=== PATIENT | female | born 1955 | race Caucasian/White ===

== ENCOUNTER → 2019-01-04 10:29 | Outpatient (CLI) | payer BC, SELFPAY ==
[2019-01-04 11:51] LABS: Add Manual Diff / Slide Review NO; Basophils Absolute Auto 0 /uL (0-100); Basophils Percent Auto 0.5 % (0-2); Eosinophils Absolute Auto 0 /uL (0-450); Eosinophils Percent Auto 1.1 % (2-4); Hematocrit 41.4 % (36-46); Hemoglobin 14.2 g/dL (12.0-16.0); Lymphocytes Absolute Auto 1600 /uL (1100-4500); Lymphocytes Percent Auto 39.7 % (25-40); Mean Corpuscular HGB Conc 34.4 % (30-36); Mean Corpuscular Hemoglobin 31.9 PG (26-34); Mean Corpuscular Volume 92.7 fL (80-100); Monocytes Absolute Auto 200 /uL (0-900); Monocytes Percent Auto 5.7 % (3-14); Neutrophils Absolute Auto 2100 /uL (1500-7000); Platelet Count 222 X10^3/uL (150-400); Red Blood Cell Count 4.46 X10^6/uL (4.0-5.2); Red Cell Distribution Width 13.3 % (11.6-14.8)
[2019-01-04 12:21] LABS: Alanine Aminotransferase 12 IU/L (<35); Albumin 4.5 g/dL (3.5-5.0); Albumin Globulin Ratio 1.7 (1.0-2.8); Alkaline Phosphatase 63 U/L (38-126); Aspartate Aminotransferase 21 IU/L (14-36); BUN Creatinine Ratio 18.8 (6-22); Bilirubin Total 0.6 mg/dL (0.2-1.3); Bilirubin Unconjugated 0.5 mg/dL (0.0-1.1); Blood Urea Nitrogen 15 mg/dL (7-17); Calcium 9.5 mg/dL (8.4-10.2); Carbon Dioxide 30 mmol/L (22-32); Chloride 102 mmol/L (98-107); Estimated Glomerular Filt Rate > 60.0 mL/min (>60); Globulin 2.6 g/dL (1.7-4.1); Glucose 80 mg/dL (80-110); HEMOLYSIS < 15 (0-50); Potassium 4.8 mmol/L (3.4-5.1); Sodium 140 mmol/L (137-145); Total Protein 7.1 g/dL (6.3-8.2)
== END ==
PROVIDERS: Visit Provider Family Medicine
DX: Z86.69 Personal history of other diseases of the nervous system and sense organs (principal)
CPT/HCPCS: 36415; 80048; 80076; 85025

== ENCOUNTER → 2019-03-14 13:48 | Outpatient (CLI) | payer BC, SELFPAY ==
--- NOTE | 2019-03-14 13:52 | DI.MG.S_ITS ---
BILATERAL DIGITAL SCREENING MAMMOGRAM 3D/2D WITH CAD: 03/14/2019 CLINICAL: Routine screening. Comparison is made to exams dated: 02/26/2015 mammogram - [facility], 12/20/2010 mammogram, and 05/30/2009 mammogram - [facility]. The tissue of both breasts is extremely dense, which lowers the sensitivity of mammography. Current study was also evaluated with a Computer Aided Detection (CAD) system. No significant masses, calcifications, or other findings are seen in either breast. There has been no significant interval change. IMPRESSION: NEGATIVE There is no mammographic evidence of malignancy. A 1 year screening mammogram is recommended. This exam was interpreted at Station ID: [id number]. NOTE: For mammograms, a report in lay terms will be sent to the patient. Approximately 15% of breast malignancies will not be visualized mammographically. In the management of a palpable breast mass, a negative mammogram must not discourage biopsy of a clinically suspicious lesion. Electronically Signed By: Gary reza/art:03/15/2019 07:47:20 letter sent: Normal Exam ACR BI-RADS Category 1: Negative 3341F
[2019-03-14 14:38] LABS: Cholesterol 226 mg/dL (140-199); HDL Cholesterol 76 mg/dL (40-60); LDL Cholesterol Calculated 140 mg/dL (<100); Triglycerides 51 mg/dL (35-150)
[2019-03-14 15:38] LABS: Thyroid Stimulating Hormone 0.31 uIU/mL (0.47-4.68)
== END ==
PROVIDERS: PCP Family Medicine; Visit Provider Family Medicine
DX: Z12.31 Encounter for screening mammogram for malignant neoplasm of breast (principal); Z13.220 Encounter for screening for lipoid disorders; Z86.69 Personal history of other diseases of the nervous system and sense organs
CPT/HCPCS: 36415; 77063; 77067; 80061; 84443

== ENCOUNTER → 2019-03-22 12:50 | Outpatient (CLI) | payer BC, SELFPAY ==
[2019-03-22 14:31] LABS: Free T3, Triiodothyronine Free 3.22 pg/mL (2.77-5.27); Free T4, Direct Thyroxine 0.99 ng/dL (0.78-2.19)
[2019-03-22 14:44] LABS: Thyroid Stimulating Hormone 0.55 uIU/mL (0.47-4.68)
== END ==
PROVIDERS: PCP Nurse Practitioner; Visit Provider Nurse Practitioner
DX: E03.8 Other specified hypothyroidism (principal)
CPT/HCPCS: 36415; 84439; 84443; 84481

== ENCOUNTER → 2019-06-13 11:50 | Outpatient (CLI) | payer BC, SELFPAY ==
[2019-06-13 12:23] LABS: Add Manual Diff / Slide Review NO; Basophils Absolute Auto 0 /uL (0-100); Basophils Percent Auto 0.5 % (0-2); Eosinophils Absolute Auto 0 /uL (0-450); Eosinophils Percent Auto 0.6 % (2-4); Hematocrit 41.5 % (36-46); Hemoglobin 14.3 g/dL (12.0-16.0); Lymphocytes Absolute Auto 1600 /uL (1100-4500); Lymphocytes Percent Auto 35.2 % (25-40); Mean Corpuscular HGB Conc 34.5 % (30-36); Mean Corpuscular Hemoglobin 32.8 PG (26-34); Mean Corpuscular Volume 95.1 fL (80-100); Monocytes Absolute Auto 200 /uL (0-900); Monocytes Percent Auto 4.6 % (3-14); Neutrophils Absolute Auto 2700 /uL (1500-7000); Neutrophils Percent Auto 59.1 % (50-75); Platelet Count 220 X10^3/uL (150-400); Red Blood Cell Count 4.36 X10^6/uL (4.0-5.2); Red Cell Distribution Width 13.5 % (11.6-14.8); White Blood Cell Count 4.6 X10^3/uL (4.5-11.0)
== END ==
PROVIDERS: PCP Nurse Practitioner; Referring Provider Obstetrics & Gynecology; Visit Provider Obstetrics & Gynecology
DX: N95.2 Postmenopausal atrophic vaginitis (principal)
CPT/HCPCS: 36415; 85025

== ENCOUNTER → 2019-06-15 12:11 | Outpatient (CLI) | payer BC, SELFPAY ==
--- NOTE | 2019-06-15 12:13 | DI.US.S_ITS ---
PROCEDURE: US ABDOMEN LIMITED INDICATIONS: LEFT GROIN MASS TECHNIQUE: Real-time scanning was performed of the abdominal and retroperitoneal organs, with image documentation. COMPARISON: None. FINDINGS: Targeted sonographic evaluation of the left labial region and left pelvic floor at the palpable area of concern was performed. No suspicious mass, lymph node, skin abnormalities or sebaceous cyst identified. No abnormal fluid collections. IMPRESSION: No sonographic abnormalities identified over the palpable area of concern involving the pelvic floor and left labial region. Recommend continued clinical surveillance with followup imaging as needed. Dictated by: Gary Hernadez M.D. on 06/15/2019 at 13:08 Approved by: Gary Hernadez M.D. on 06/15/2019 at 13:11
== END ==
PROVIDERS: PCP Nurse Practitioner; Referring Provider Obstetrics & Gynecology; Visit Provider Obstetrics & Gynecology
DX: R19.09 Other intra-abdominal and pelvic swelling, mass and lump (principal)
CPT/HCPCS: 76705

== ENCOUNTER → 2019-11-23 09:36 | Outpatient (CLI) | payer BC, SELFPAY ==
[2019-11-23 11:00] LABS: Alanine Aminotransferase 12 IU/L (<35); Albumin 4.1 g/dL (3.5-5.0); Albumin Globulin Ratio 1.4 (1.0-2.8); Alkaline Phosphatase 55 U/L (38-126); Aspartate Aminotransferase 22 IU/L (14-36); Bilirubin Total 0.5 mg/dL (0.2-1.3); Blood Urea Nitrogen 16 mg/dL (7-17); Calcium 9.1 mg/dL (8.4-10.2); Carbon Dioxide 30 mmol/L (22-32); Chloride 105 mmol/L (98-107); Cholesterol 218 mg/dL (140-199); Estimated Glomerular Filt Rate > 60.0 mL/min (>60); Glucose 87 mg/dL (80-110); HDL Cholesterol 83 mg/dL (40-60); HEMOLYSIS < 15 (0-50); LDL Cholesterol Calculated 125 mg/dL (<100); Potassium 4.2 mmol/L (3.4-5.1); Sodium 140 mmol/L (137-145); Total Protein 7.1 g/dL (6.3-8.2); Triglycerides 51 mg/dL (35-150)
[2019-11-23 17:19] LABS: Free T3, Triiodothyronine Free 3.37 pg/mL (2.77-5.27); Free T4, Direct Thyroxine 1.18 ng/dL (0.78-2.19)
== END ==
PROVIDERS: PCP Nurse Practitioner; Referring Provider Nurse Practitioner; Visit Provider Nurse Practitioner
DX: Z01.812 Encounter for preprocedural laboratory examination (principal); E03.9 Hypothyroidism, unspecified; E78.5 Hyperlipidemia, unspecified; Z79.899 Other long term (current) drug therapy; R19.09 Other intra-abdominal and pelvic swelling, mass and lump; R79.89 Other specified abnormal findings of blood chemistry
CPT/HCPCS: 36415; 80053; 80061; 82565; 84439; 84443; 84481; 84520

== ENCOUNTER → 2020-10-18 09:19 | Outpatient (CLI) | payer BC, SELFPAY ==
[2020-10-18 09:45] LABS: Add Manual Diff / Slide Review NO; Basophils Absolute Auto 0 /uL (0-100); Basophils Percent Auto 0.8 % (0-2); Eosinophils Absolute Auto 0 /uL (0-450); Eosinophils Percent Auto 0.8 % (2-4); Hematocrit 40.8 % (36-46); Hemoglobin 13.5 g/dL (12.0-16.0); Lymphocytes Absolute Auto 1700 /uL (1100-4500); Lymphocytes Percent Auto 40.9 % (25-40); Mean Corpuscular HGB Conc 33.2 % (30-36); Mean Corpuscular Hemoglobin 31.5 PG (26-34); Monocytes Absolute Auto 200 /uL (0-900); Monocytes Percent Auto 5.7 % (3-14); Neutrophils Absolute Auto 2200 /uL (1500-7000); Neutrophils Percent Auto 51.8 % (50-75); Platelet Count 212 X10^3/uL (150-400); Red Cell Distribution Width 13.9 % (11.6-14.8); White Blood Cell Count 4.2 X10^3/uL (4.5-11.0)
[2020-10-18 10:01] LABS: Alanine Aminotransferase 15 IU/L (<35); Albumin Globulin Ratio 1.4 (1.0-2.8); Alkaline Phosphatase 51 U/L (38-126); Aspartate Aminotransferase 29 IU/L (14-36); BUN Creatinine Ratio 21.8 (6-22); Bilirubin Total 0.6 mg/dL (0.2-1.3); Blood Urea Nitrogen 17 mg/dL (7-17); Calcium 9.3 mg/dL (8.4-10.2); Carbon Dioxide 29 mmol/L (22-32); Chloride 106 mmol/L (98-107); Cholesterol 220 mg/dL (140-199); Estimated Glomerular Filt Rate > 60.0 mL/min (>60); Globulin 2.9 g/dL (1.7-4.1); Glucose 88 mg/dL (80-110); HDL Cholesterol 96 mg/dL (40-60); HEMOLYSIS < 15 (0-50); LDL Cholesterol Calculated 115 mg/dL (<100); Potassium 4.1 mmol/L (3.4-5.1); Sodium 138 mmol/L (137-145); Total Protein 6.9 g/dL (6.3-8.2); Triglycerides 46 mg/dL (35-150)
[2020-10-18 10:36] LABS: Free T3, Triiodothyronine Free 4.09 pg/mL (2.77-5.27); Free T4, Direct Thyroxine 1.12 ng/dL (0.78-2.19)
[2020-10-18 10:49] LABS: Thyroid Stimulating Hormone 0.373 uIU/mL (0.47-4.68)
== END ==
PROVIDERS: PCP Nurse Practitioner; Referring Provider Nurse Practitioner; Visit Provider Nurse Practitioner
DX: E78.5 Hyperlipidemia, unspecified (principal); R79.89 Other specified abnormal findings of blood chemistry; Z79.899 Other long term (current) drug therapy
CPT/HCPCS: 36415; 80053; 80061; 84439; 84443; 84481; 85025

== ENCOUNTER 2021-02-04 07:10 | Day surgery (SDC) | payer BC, SELFPAY ==
[2021-02-04] VITALS (8 sets, daily range): BP systolic 103–118; BP diastolic 63–75; PULSE 45–71; RESP 12–16; TEMP 36.5–36.8; O2SAT 97–98; BMI 18.8
[2021-02-04] MEDS: LACTATED RINGERS 1,000 ML 200 ML IV (07:49)
--- NOTE | 2021-02-04 08:19 | PM.HP.1 ---
History of Present Illness History of Present Illness Date Patient Seen: 02/04/21 Time Patient Seen: 08:19 Chief complaint: DEC Narrative: The patient presents for colorectal sreening. She had a previous colonoscopy 5 years ago. Family history of colon cancer. On further history denies any recent gastrointestinal symptoms. No nausea, vomiting, abdominal pain, loss of appetite, unexplained weight loss, change in bowel habits, diarrhea, constipation, melena, hematochezia, or bright red blood per rectum. Patient History Medical History Chicken pox Fibroids (~2004) Fractures Hearing loss Hx of migraine headaches (~1975) Left groin mass Measles Mumps Pain associated with vaginal penetration Vaginal atrophy Surgical History Anesthesia History of hysterectomy (~2004) History of mandibular surgery (~1986) Family & Social History Family History Father Stroke Grandfather No problems noted. Grandmother Stroke Social History: household members spouse Tobacco & Substance use: Smoking Status Never smoker alcohol intake never Substance Use Type does not use Meds Home Medications and Allergies Home Medications Medication Instructions Recorded Confirmed Type coenzyme Q10 [Ultra CoQ10] 1 tab PO DAILY 01/04/19 02/04/21 History clobetasol 0.05 % topical ointment 1 applictn TOP DAILY #30 gram 04/13/19 02/04/21 Rx zolmitriptan 5 mg tablet (Zomig) See Rx Instructions PO .COMPLEX 10/24/20 02/04/21 Rx #10 tab sodium,potassium,mag sulfates 17.5 See Rx Instructions PO .COMPLEX 11/08/20 02/04/21 Rx gram-3.13 gram-1.6 gram oral soln #354 ml (Suprep Bowel Prep Kit) Estriol 1mg Vaginal Danita See Rx Instructions .ROUTE 01/29/21 02/04/21 Rx .COMPLEX #30 each Aimovig Autoinjector 140 mg IM USEASDIRECTD 02/04/21 02/04/21 History Allergies Allergy/AdvReac Type Severity Reaction Status Date / Time hydromorphone [From Dilaudid] AdvReac rebound Verified 02/04/21 07:24 headache Exam Vital Signs (past 8 hours): - 02/04/21 07:31 Temperature 98.3 F Pulse Rate 54 L Respiratory Rate 16 Blood Pressure 117/72 Pulse Oximetry 98 Oxygen Delivery Method Room Air Narrative Exam Narrative: Constitutional-She is oriented to person, place and time. No apparent distress Cardiovascular- regular rate, no peripheral edema Pulmonary-unlabored respiratory effort, no audible wheezing Abdominal-soft, non-tender, non-distended Musculoskeletal-no cyanosis or clubbing Neurological-nonfocal, normal strength throughout, normal gait. Skin-warm and dry Assessment & Plan Assessment & Plan narrative: The patient requires colorectal screening and colonoscopy is recommended. Technical details were discussed. Risks, benefits, alternatives explained. Risks including but not limited to myocardial infarction, aspiration, bleeding, pain, missed lesion, incomplete examination, need for further radiographic studies, colonic perforation, and need for major abdominal surgery were discussed. All questions were answered to their satisfaction, and they are in agreement with this plan. Time Spent With Patient Critical Care time: I spent a total of [] minutes of critical care time on this patient's care today; this time is exclusive of procedural time.
[2021-02-04] MEDS: fentaNYL 250 MCG/5 ML INJ IV (08:42)
[2021-02-04] MEDS: MIDAZOLAM 5 MG/5 ML VIAL IV (08:42)
--- NOTE | 2021-02-04 08:52 | PM.OP.COLON ---
Operative Date/Time/Diagnoses Date of procedure: 02/04/21 Time of procedure: 08:52 Pre-op diagnosis: Family history of colon cancer Post-op diagnosis: same Procedure & Clinicians Study performed: Colonoscopy Same procedure as scheduled: Yes Indications: Family history colon cancer Surgeon: Mario London Procedure Notes Procedure in detail: Medications: Conscious sedation using 4mg IV midazolam and 150mcg IV of fentanyl The history and physical was performed/updated and the patient is ASA class is 2. The procedure was discussed in detail with the patient. Potential risks complications including infection, bleeding, missed diagnosis, perforation, need for surgery, and were explained. Their questions were answered and informed consent was obtained. Patient was brought to the procedure room and placed standard monitoring equipment. The patient's vital signs were monitored continuously throughout the entire procedure. Prior to starting time-out was performed. The patient was placed in the left lateral recumbent position. Procedural sedation was administered. Examination began with a thorough inspection of the perianal area there was no evidence of fissures, fistulae, external hemorrhoids or cutaneous malignancy. The colonoscopy scope was then placed into the anal canal and was advanced to the cecum, which was identified by the ileocecal valve, the appendiceal orifice and the confluence of the taenia. The scope was then slowly withdrawn examining colon thoroughly in all directions, irrigating it of any residual stool. FINDINGS 1. No masses polyps or inflammation 2. Grade 2 internal The patient tolerated the procedure well. They will be discharged once criteria are met. The prep was of good/excellent quality. The withdrawl time was 6minutes. The sedation time was 25 minutes. Specimen(s): none sent Complications: none Impression: Normal colonoscopy Post-procedure Recommendations: Colonoscopy in 5 years Disposition: same day surgery
--- NOTE | 2021-02-04 09:06 | SUR.PHASEI ---
0854 hrs: Pt arrives PACU breathing unassisted, Report form ELMER Rose, all questions answered.
--- NOTE | 2021-02-04 09:30 | SUR.PHASEI ---
0910 hrs: Pt transported to bay 3. Report to ELMER Tolbert, all questions answered.
--- NOTE | 2021-02-04 10:08 | SUR.PHASEII ---
Late entry: Stable Phase 2, pt dressed, left when ready and left in stable condition.
--- NOTE | 2021-02-04 10:18 | SUR.PHASEII ---
Pt ready to go, ride called, went to voicemail , mail box full. Will try again. Pt w/o complaints.
== END 2021-02-04 09:50 | disposition home or self-care (01) ==
PROVIDERS: PCP Nurse Practitioner; Referring Provider Surgery; Visit Provider Surgery
PROC: 0DJD8ZZ Inspection of Lower Intestinal Tract, Via Natural or Artificial Opening Endoscopic (ICD-10-PCS; CPT 45378; principal; 2021-02-04 08:30)
DX: Z12.11 Encounter for screening for malignant neoplasm of colon (principal); Z80.0 Family history of malignant neoplasm of digestive organs; K64.1 Second degree hemorrhoids
CPT/HCPCS: 45378; 99152; J2250; J3010

== ENCOUNTER → 2021-02-12 09:58 | Outpatient (CLI) | payer BC, SELFPAY ==
--- NOTE | 2021-02-12 10:00 | DI.MG.S_ITS ---
BILATERAL DIGITAL SCREENING MAMMOGRAM 3D/2D WITH CAD: 02/12/2021 CLINICAL: Routine screening. Comparison is made to exams dated: 03/14/2019 mammogram - [facility], 02/26/2015 mammogram - [facility], and 12/20/2010 mammogram - [facility]. The tissue of both breasts is extremely dense, which lowers the sensitivity of mammography. Current study was also evaluated with a Computer Aided Detection (CAD) system. There are benign calcifications in the right breast. No significant masses, calcifications, or other findings are seen in either breast. There has been no significant interval change. IMPRESSION: BENIGN There is no mammographic evidence of malignancy. A 1 year screening mammogram is recommended. This exam was interpreted at Station ID: [id number]. NOTE: For mammograms, a report in lay terms will be sent to the patient. Approximately 15% of breast malignancies will not be visualized mammographically. In the management of a palpable breast mass, a negative mammogram must not discourage biopsy of a clinically suspicious lesion. Electronically Signed By: Lexa purdy/art:02/12/2021 10:34:16 letter sent: Normal Exam ACR BI-RADS Category 2: Benign Finding(s) 3342F
== END ==
PROVIDERS: PCP Nurse Practitioner; Referring Provider Nurse Practitioner; Visit Provider Nurse Practitioner
DX: Z12.31 Encounter for screening mammogram for malignant neoplasm of breast (principal)
CPT/HCPCS: 77063; 77067

== ENCOUNTER → 2021-12-17 08:20 | Outpatient (CLI) | payer BC, SELFPAY ==
[2021-12-17 09:38] LABS: Alanine Aminotransferase 17 IU/L (<35); Albumin 4.4 g/dL (3.5-5.0); Albumin Globulin Ratio 1.3 (1.0-2.8); Alkaline Phosphatase 57 U/L (38-126); Aspartate Aminotransferase 38 IU/L (14-36); BUN Creatinine Ratio 21.7 (6-22); Bilirubin Total 0.6 mg/dL (0.2-1.3); Blood Urea Nitrogen 18 mg/dL (7-17); Calcium 9.1 mg/dL (8.4-10.2); Carbon Dioxide 25 mmol/L (22-32); Chloride 104 mmol/L (98-107); Cholesterol 237 mg/dL (140-199); Estimated Glomerular Filt Rate > 60 mL/min (>60); Globulin 3.3 g/dL (1.7-4.1); Glucose 84 mg/dL (80-110); HDL Cholesterol 83 mg/dL (40-60); HEMOLYSIS 24 (0-50); LDL Cholesterol Calculated 145 mg/dL (<100); Potassium 3.9 mmol/L (3.4-5.1); Sodium 139 mmol/L (137-145); Total Protein 7.7 g/dL (6.3-8.2); Triglycerides 45 mg/dL (35-150)
[2021-12-17 09:58] LABS: Free T3, Triiodothyronine Free 3.41 pg/mL (2.77-5.27); Free T4, Direct Thyroxine 1.15 ng/dL (0.78-2.19)
[2021-12-17 10:11] LABS: Thyroid Stimulating Hormone 0.711 uIU/mL (0.47-4.68)
[2021-12-17 10:44] LABS: Hep C Virus Ab w/Reflex Quant NEGATIVE s/c (NEGATIVE)
== END ==
PROVIDERS: PCP Nurse Practitioner; Referring Provider Nurse Practitioner; Visit Provider Nurse Practitioner
DX: E78.5 Hyperlipidemia, unspecified (principal); R79.89 Other specified abnormal findings of blood chemistry; Z79.899 Other long term (current) drug therapy; Z86.69 Personal history of other diseases of the nervous system and sense organs; Z11.59 Encounter for screening for other viral diseases
CPT/HCPCS: 36415; 80053; 80061; 84439; 84443; 84481; 86803

== ENCOUNTER → 2022-02-13 09:49 | Outpatient (CLI) | payer BC, SELFPAY ==
--- NOTE | 2022-02-13 09:50 | DI.MG.S_ITS ---
BILATERAL DIGITAL SCREENING MAMMOGRAM 3D/2D WITH CAD: 02/13/2022 CLINICAL: Routine screening. Comparison is made to exams dated: 02/12/2021 mammogram, 03/14/2019 mammogram - [facility], and 02/26/2015 mammogram - [facility]. Both breasts are extremely dense, which lowers the sensitivity of mammography (category d />75% glandular tissue). Current study was also evaluated with a Computer Aided Detection (CAD) system. There are grouped linear fine calcifications in the right breast at 1 o'clock anterior depth. No other significant masses, calcifications, or other findings are seen in either breast. IMPRESSION: INCOMPLETE: NEEDS ADDITIONAL IMAGING EVALUATION The grouped linear fine calcifications in the right breast are indeterminate. Magnification and lateromedial views are recommended. This exam was interpreted at Station ID: [id number]. NOTE: For mammograms, a report in lay terms will be sent to the patient. Approximately 15% of breast malignancies will not be visualized mammographically. In the management of a palpable breast mass, a negative mammogram must not discourage biopsy of a clinically suspicious lesion. Electronically Signed By: Stoney Garsia M.D., jr/art:02/13/2022 11:04:55 letter sent: Additional Imaging Needed ACR BI-RADS Category 0: Incomplete 3340F
[2022-02-17 15:57] LABS: Fecal Immunochemical Test Negative (Negative)
== END ==
PROVIDERS: PCP Nurse Practitioner; Referring Provider Nurse Practitioner; Visit Provider Nurse Practitioner
DX: Z12.31 Encounter for screening mammogram for malignant neoplasm of breast (principal); Z13.820 Encounter for screening for osteoporosis; Z12.11 Encounter for screening for malignant neoplasm of colon; Z78.0 Asymptomatic menopausal state; M85.852 Other specified disorders of bone density and structure, left thigh; Z90.710 Acquired absence of both cervix and uterus; Z92.23 Personal history of estrogen therapy
CPT/HCPCS: 77063; 77067; 77080; 82274

== ENCOUNTER → 2022-03-05 10:18 | Outpatient (CLI) | payer BC, SELFPAY ==
--- NOTE | 2022-03-05 | DI.MG.S_ITS ---
UNILATERAL RIGHT DIGITAL DIAGNOSTIC MAMMOGRAM 3D/2D WITH ADDITIONAL VIEWS: 03/05/2022 CLINICAL: Additional evaluation requested from prior study. Comparison is made to exams dated: 02/13/2022 mammogram, 02/12/2021 mammogram, and 03/14/2019 mammogram - [facility]. The right breast is extremely dense, which lowers the sensitivity of mammography (category d />75% glandular tissue). There are grouped oval and round calcifications in the right breast at 12 o'clock anterior depth. These have increased in number since 2020. No other significant masses or calcifications are seen in the breast. IMPRESSION: PROBABLY BENIGN The calcifications in the right breast are probably benign. A follow-up right mammogram in 6 months is recommended to demonstrate stability. Findings and recommendations were conveyed to the patient at time of exam. This exam was interpreted at Station ID: [id number]. NOTE: For mammograms, a report in lay terms will be sent to the patient. Approximately 15% of breast malignancies will not be visualized mammographically. In the management of a palpable breast mass, a negative mammogram must not discourage biopsy of a clinically suspicious lesion. Electronically Signed By: Lynette whitley/:03/05/2022 10:56:56 letter sent: Followup Recommended ACR BI-RADS Category 3: Probably benign 3343F
== END ==
PROVIDERS: PCP Nurse Practitioner; Referring Provider Nurse Practitioner; Visit Provider Nurse Practitioner
DX: R92.8 Other abnormal and inconclusive findings on diagnostic imaging of breast (principal); R92.1 Mammographic calcification found on diagnostic imaging of breast
CPT/HCPCS: 77065; G0279

== ENCOUNTER → 2022-08-06 10:02 | Outpatient (CLI) | payer BC, SELFPAY ==
--- NOTE | 2022-08-06 10:03 | DI.MG.S_ITS ---
UNILATERAL RIGHT DIGITAL DIAGNOSTIC MAMMOGRAM 3D/2D: 08/06/2022 CLINICAL: Short term follow up of the right breast. Comparison is made to exams dated: 03/05/2022 mammogram, 02/13/2022 mammogram, and 02/12/2021 mammogram - [facility]. The right breast is extremely dense, which lowers the sensitivity of mammography (category d />75% glandular tissue). There are grouped round calcifications in the right breast at 12 o'clock anterior depth. These are not significantly changed. No other significant masses or calcifications are seen in the breast. IMPRESSION: PROBABLY BENIGN The grouped round calcifications in the right breast are probably benign. A follow-up mammogram in 6 months is recommended to demonstrate stability. Based on the Tyrer Cuzick model (a risk assessment model) the patient's lifetime risk is 17.0% and her 10 year risk is 8.7%. According to the ACR, ACS, and NCCN guidelines, an annual breast MRI exam along with mammogram is recommended if the patient's lifetime risk is 20% or greater. This exam was interpreted at Station ID: [id number]. NOTE: For mammograms, a report in lay terms will be sent to the patient. Approximately 15% of breast malignancies will not be visualized mammographically. In the management of a palpable breast mass, a negative mammogram must not discourage biopsy of a clinically suspicious lesion. Electronically Signed By: Dinesh shafer/art:08/06/2022 13:01:09 letter sent: Followup Recommended ACR BI-RADS Category 3: Probably benign 3343F
== END ==
PROVIDERS: PCP Nurse Practitioner; Referring Provider Nurse Practitioner; Visit Provider Nurse Practitioner
DX: R92.1 Mammographic calcification found on diagnostic imaging of breast (principal)
CPT/HCPCS: 77065; G0279

== ENCOUNTER → 2022-12-30 11:35 | Outpatient (CLI) | payer BC, SELFPAY ==
[2022-12-30 12:45] LABS: Add Manual Diff / Slide Review NO; Basophils Absolute Auto 0 /uL (0-100); Basophils Percent Auto 0.4 % (0-2); Eosinophils Absolute Auto 0 /uL (0-450); Eosinophils Percent Auto 0.5 % (2-4); Hematocrit 39.9 % (36-46); Hemoglobin 13.8 g/dL (12.0-16.0); Lymphocytes Absolute Auto 1600 /uL (1100-4500); Lymphocytes Percent Auto 33.3 % (25-40); Mean Corpuscular HGB Conc 34.5 % (30-36); Mean Corpuscular Hemoglobin 32.5 PG (26-34); Mean Corpuscular Volume 94.1 fL (80-100); Monocytes Absolute Auto 200 /uL (0-900); Monocytes Percent Auto 5.1 % (3-14); Neutrophils Absolute Auto 2900 /uL (1500-7000); Neutrophils Percent Auto 60.7 % (50-75); Platelet Count 203 X10^3/uL (150-400); Red Blood Cell Count 4.24 X10^6/uL (4.0-5.2); Red Cell Distribution Width 13.1 % (11.6-14.8); White Blood Cell Count 4.7 X10^3/uL (4.5-11.0)
[2022-12-30 13:37] LABS: Alanine Aminotransferase 14 IU/L (<35); Albumin 4.1 g/dL (3.5-5.0); Albumin Globulin Ratio 1.5 (1.0-2.8); Alkaline Phosphatase 45 U/L (38-126); Aspartate Aminotransferase 22 IU/L (14-36); BUN Creatinine Ratio 22.2 (6-22); Bilirubin Total 0.8 mg/dL (0.2-1.3); Blood Urea Nitrogen 16 mg/dL (7-17); Calcium 9.5 mg/dL (8.4-10.2); Carbon Dioxide 27 mmol/L (22-32); Chloride 104 mmol/L (98-107); Cholesterol 236 mg/dL (140-199); Estimated Glomerular Filt Rate > 60 mL/min (>60); Globulin 2.8 g/dL (1.7-4.1); Glucose 89 mg/dL (80-110); HDL Cholesterol 93 mg/dL (40-60); HEMOLYSIS < 15 (0-50); Potassium 4.1 mmol/L (3.4-5.1); Sodium 138 mmol/L (137-145); Total Protein 6.9 g/dL (6.3-8.2)
[2022-12-30 13:54] LABS: TSH w/ Reflex to FT4 0.31 uIU/mL (0.47-4.68)
[2022-12-30 19:07] LABS: LDL Cholesterol Calculated 132 mg/dL (<100); Triglycerides 54 mg/dL (35-150)
[2022-12-30 19:09] LABS: Free T4, Direct Thyroxine 1.27 ng/dL (0.78-2.19)
== END ==
PROVIDERS: PCP Nurse Practitioner; Referring Provider Family Medicine; Visit Provider Family Medicine
DX: M85.80 Other specified disorders of bone density and structure, unspecified site (principal); R79.89 Other specified abnormal findings of blood chemistry; E78.5 Hyperlipidemia, unspecified; Z86.69 Personal history of other diseases of the nervous system and sense organs; H91.90 Unspecified hearing loss, unspecified ear; G43.909 Migraine, unspecified, not intractable, without status migrainosus
CPT/HCPCS: 36415; 80053; 80061; 84439; 84443; 85025

== ENCOUNTER → 2023-02-10 12:04 | Outpatient (CLI) | payer BC, SELFPAY ==
--- NOTE | 2023-02-10 12:05 | DI.MG.S_ITS ---
BILATERAL DIGITAL DIAGNOSTIC MAMMOGRAM 3D/2D: 02/10/2023 CLINICAL: Short term follow up, due bilateral. Comparison is made to exams dated: 08/06/2022 mammogram, 03/05/2022 mammogram, 02/13/2022 mammogram, 02/12/2021 mammogram, and 03/14/2019 mammogram - [facility]. Both breasts are extremely dense, which lowers the sensitivity of mammography (category d />75% glandular tissue). There are grouped rim round calcifications in the right breast at 12 o'clock anterior depth. These are more well defined and denser compared to prior. No other significant masses, calcifications, or other findings are seen in either breast. Mammograms are otherwise stable. IMPRESSION: PROBABLY BENIGN The grouped calcifications in the right breast are stable, resemble fibrocystic change or milk of calcium and are probably benign. A follow-up right mammogram in 6 months is recommended to demonstrate stability. Bilateral mammograms are otherwise stable. Findings and recommendations were conveyed to the patient at time of exam. Based on the Tyrer Cuzick model (a risk assessment model) the patient's lifetime risk is 17.0% and her 10 year risk is 8.7%. According to the ACR, ACS, and NCCN guidelines, an annual breast MRI exam along with mammogram is recommended if the patient's lifetime risk is 20% or greater. This exam was interpreted at Station ID: [id number]. NOTE: For mammograms, a report in lay terms will be sent to the patient. Approximately 15% of breast malignancies will not be visualized mammographically. In the management of a palpable breast mass, a negative mammogram must not discourage biopsy of a clinically suspicious lesion. Electronically Signed By: Lynette whitley/:02/10/2023 12:40:06 letter sent: Followup Recommended ACR BI-RADS Category 3: Probably benign 3343F
== END ==
PROVIDERS: PCP Nurse Practitioner; Referring Provider Nurse Practitioner; Visit Provider Nurse Practitioner
DX: R92.8 Other abnormal and inconclusive findings on diagnostic imaging of breast (principal); R92.1 Mammographic calcification found on diagnostic imaging of breast
CPT/HCPCS: 77066; G0279

== ENCOUNTER → 2023-12-03 10:07 | Outpatient (CLI) | payer BC, SELFPAY ==
--- NOTE | 2023-12-03 | DI.MG.S_ITS ---
BILATERAL DIGITAL DIAGNOSTIC MAMMOGRAM 3D/2D SHORT-TERM FOLLOW-UP: 12/03/2023 CLINICAL: Short term follow up of the right breast, due for bilateral imaging. Comparison is made to exams dated: 02/10/2023 mammogram, 08/06/2022 mammogram, 03/05/2022 mammogram, and 02/13/2022 mammogram - [facility]. The breasts are extremely dense, which lowers the sensitivity of mammography (category d />75% glandular tissue). There are grouped rim round calcifications in the right breast at 12 o'clock anterior depth. These are increased in number. No other significant masses, calcifications, or other findings are seen in either breast. IMPRESSION: INCOMPLETE: NEED ADDITIONAL IMAGING EVALUATION The grouped rim round calcifications in the right breast are mildly increased and size compared to January 2022. No mass seen at the palpable abnormalities. A targeted ultrasound is recommended and will immediately follow. Based on the Tyrer Cuzick model (a risk assessment model) the patient's lifetime risk is 16.2% and her 10 year risk is 8.7%. According to the ACR, ACS, and NCCN guidelines, an annual breast MRI exam along with mammogram is recommended if the patient's lifetime risk is 20% or greater. This exam was interpreted at Station ID: [id number]. NOTE: For mammograms, a report in lay terms will be sent to the patient. Approximately 15% of breast malignancies will not be visualized mammographically. In the management of a palpable breast mass, a negative mammogram must not discourage biopsy of a clinically suspicious lesion. Electronically Signed By: Donta Triana M.D. [facility]/:12/03/2023 11:11:25 Entry: - 12/03/2023 15:22:52 letter sent: Need Ultrasound ACR BI-RADS Category 0: Incomplete: Need Additional Imaging Evaluation
--- NOTE | 2023-12-03 10:08 | DI.US.S_ITS ---
LIMITED ULTRASOUND OF RIGHT BREAST AND AXILLA: 12/03/2023 CLINICAL: Palpable right breast lumps x 2. Comparison is made to exams dated: 12/03/2023 mammogram, 02/10/2023 mammogram, 08/06/2022 mammogram, 03/05/2022 mammogram, 02/13/2022 mammogram, and 02/12/2021 mammogram - [facility]. Report from CT chest 11/20/2023. Color flow and real-time ultrasound of the right breast 1-2 o'clock, 10 o'clock, and axilla regions were performed. Stanford scale images of the real-time examination were reviewed. There is a 3.9 cm x 3.6 cm x 1.6 cm mass with a microlobulated margin in the right breast at 1 o'clock anterior depth 2 cm from the nipple. This mass is hypoechoic. This correlates as palpated. Color flow imaging demonstrates that there is vascularity present. This mass appear to extend inferior laterally to the 3:00 position. There also is a benign 0.6 cm x 0.6 cm x 0.3 cm oval simple cyst in the right breast at 10 o'clock posterior depth 5 cm from the nipple. This oval simple cyst is anechoic. Color flow imaging demonstrates that there is no vascularity present. Additionally, there is a benign 0.8 cm x 0.7 cm x 0.3 cm normal lymph node in the right breast at 10 o'clock posterior depth 8 cm from the nipple. This normal lymph node is hypoechoic with fatty hilum. Color flow imaging demonstrates that there is no vascularity present. No significant abnormalities were seen sonographically in the right axilla. IMPRESSION: HIGHLY SUGGESTIVE OF MALIGNANCY The 3.9 cm x 3.6 cm x 1.6 cm mass in the right breast at 1 o'clock anterior depth is highly suggestive of malignancy. This mass appear to extend inferior laterally to the 3:00 position. -An ultrasound guided biopsy is recommended. The 0.6 cm simple cyst in the right breast at 10 o'clock posterior depth is benign. The 0.8 cm normal lymph node in the right breast at 10 o'clock posterior depth is benign. No enlarged right axillary lymph nodes. Exam findings were discussed with the patient. This exam was interpreted at Station ID: [id number]. Electronically Signed By: Donta Triana M.D. slc/:12/03/2023 12:20:33 letter sent: Biopsy Required ACR BI-RADS Category 5: Highly Suggestive of Malignancy
== END ==
PROVIDERS: PCP Family Medicine; Referring Provider Family Medicine; Visit Provider Family Medicine
DX: R92.8 Other abnormal and inconclusive findings on diagnostic imaging of breast (principal); R92.1 Mammographic calcification found on diagnostic imaging of breast; N63.12 Unspecified lump in the right breast, upper inner quadrant; N60.01 Solitary cyst of right breast; R92.343 Mammographic extreme density, bilateral breasts
CPT/HCPCS: 76642; 77066; G0279

== ENCOUNTER → 2023-12-11 09:39 | Outpatient (CLI) | payer BC, SELFPAY ==
--- NOTE | 2023-12-11 09:41 | DI.US.S_ITS ---
ULTRASOUND GUIDED BIOPSY RIGHT BREAST WITH MARKING DEVICE INSERTED AND POST DIGITAL MAMMOGRAPHIC IMAGIN12/11/2023 CLINICAL: Right breast mass. PATIENT CONSENT: Risks (minor bleeding, infection, vasovagal reaction and repeat procedure), benefits and alternatives were explained to the patient and written informed consent was obtained. Correlation is made to exams dated: 12/11/2023 mammogram, 12/03/2023 ultrasound, 12/03/2023 mammogram, 02/10/2023 mammogram, 08/06/2022 mammogram, and 03/05/2022 mammogram - [facility]. An ultrasound guided biopsy using real-time ultrasound was performed for the 2.9 cm x 2.5 cm x 1.5 cm lobulated mass located in the right breast at 1 o'clock anterior depth 2 cm from the nipple. This was described on the previous ultrasound report. The skin was prepped in the usual manner. Local anesthetic was administered to the access site. A skin kelvin was made in the breast. The abnormality was approached from the lateral aspect. A 14 gauge biopsy needle was placed adjacent to the abnormality under ultrasound guidance. Once the needle was documented to be in the correct location, three cores were obtained using [employer] Elevation. The patient received additional local anesthetic during the procedure. A vision clip was inserted into the biopsy cavity. A skin adhesive and a sterile dressing were applied to the access site. Post procedure digital mammographic imaging demonstrates the location device at the targeted area. The specimens were sent to the laboratory for pathological analysis. IMPRESSION: ULTRASOUND GUIDED BIOPSY MALIGNANT Ultrasound guided biopsy of the 2.9 cm x 2.5 cm x 1.5 cm mass in the right breast at 1 o'clock anterior depth 2 cm from the nipple was successful with no apparent post procedure complications. Pathology indicates malignant ductal carcinoma in situ (DCIS). Pathology results are concordant with imaging findings. A surgical/oncologic consultation is recommended. This exam was interpreted at Station ID: [id number]. Gt murillo,aty/:12/16/2023 10:05:33
--- NOTE | 2023-12-11 09:41 | DI.MG.S_ITS ---
UNILATERAL RIGHT DIGITAL DIAGNOSTIC MAMMOGRAM 3D/2D - RIGHT BREAST POST-PROCEDURE IMAGING FOR MARKER PLACEMENT: 12/11/2023 CLINICAL: Post right breast ultrasound biopsy, clip placement imaging. Comparison is made to exams dated: 12/03/2023 mammogram, 02/10/2023 mammogram, 08/06/2022 mammogram, 03/05/2022 mammogram, and 02/13/2022 mammogram - [facility]. The breasts are extremely dense, which lowers the sensitivity of mammography (category d />75% glandular tissue). There is a vision marker clip in the appropriate position in the right breast at 1 o'clock anterior depth at the biopsy site. IMPRESSION: POST PROCEDURE MAMMOGRAM FOR MARKER PLACEMENT There was a successful vision marker clip placement in the right breast anterior depth. Procedure preformed by Dr. Odonnell. This exam was interpreted at Station ID: [id number]. Electronically Signed By: Donta Triana M.D. slc/:12/12/2023 09:40:56 ACR BI-RADS Category Post-Procedure Mammogram for Marker Placement
--- NOTE | 2023-12-11 11:09 | PATH_ITS ---
[facility] Accession Number: [id number] No. of containers..01 Tissue . 01 Material submitted: . breast - RIGHT BREAST 1:00 2CMFN . 01 Clinical history: . RIGHT BREAST 1:00 2CMFN . 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 Negative for invasive carcinoma. Few microcalcifications are present, associated with ductal carcinoma in situ. Predictive and prognostic markers ER and [place]: Positive. Please see microscopic description. MRV 12/15/2023 1705 Local . 01 Comment: As part of ongoing senior supplier quality engineer, this case is also reviewed by Dr. Ban Ruiz, who agrees with the interpretation. . 01 Electronically signed: . Cristy Rojo MD, Pathologist NPI- [id number] . 01 Gross description: . Received in formalin, labeled with two patient identifiers and designated right 1 o'clock 2 cm FN, and consists of three fibrofatty soft tissue cores admixed with clotted blood aggregating to 1.1 x 1.0 x 0.2 cm. The specimens are entirely submitted in cassette A1. . The specimen was removed on 12/12/2023 at 11:09 a.m. Formalin fixation time is not given. Cold ischemic time cannot be calculated. ([id number]) /FRR 12/12/2023 1243 Local . 01 Microscopic: . Microscopic examination reveals ductal carcinoma in situ, cribriform and solid architectural pattern, with intermediate to high nuclear grade. There is a focus of small ducts involved by carcinoma in situ. To better evaluate this focus and rule out the possibility of microinvasive carcinoma, multiple deeper levels and immunostains are performed with the following results: . DIONE immunostain (panepithelial marker) argues against infiltrating carcinoma, and p63 and myosin immunostains confirm the presence of myoepithelial/basal cell layer on the area of interest supporting ductal carcinoma in situ involving a small focus of adenosis. . Estrogen Receptor (ER) is positive, with strong intensity, more than 91% of ductal carcinoma in situ cells. . Progesterone Receptor (NY) is positive, with intermediate intensity, 51-60% of ductal carcinoma in situ cells. . The scoring criteria for breast biomarkers by immunohistochemistry is based on the ASCO/CAP guidelines (Tena AC et al, J Clin Oncol: 2018 Sep 01;36(20):4334-8886 and Alyse ME et al, Arch Pathol Lab Med: 2009;134(6):907-22). Deparaffinized sections of formalin fixed tissue (along with appropriate positive controls) are incubated with the above antibody(s). Using the automated [place] stainer, tissue is incubated with the designated antibody which is then localized by a non-biotin, dual polymer detection system. The external controls are reviewed for appropriate reactivity and found to be adequate. Results on the target cell population are indicated above. These tests have not been validated on decalcified or alcohol-based fixed tissue. . * This test was developed and the performance characteristics were validated by [facility]. It has not been cleared or approved by the U.S. Food and Drug Administration. . . 01 Pathologist provided ICD-10: D05.91 . 01 CPT . 905258, K01223, X16592, 740648, 707064 Performed at: [address] [address], [place], [place] [id number] MD Lexa Xiao MD Phone: [phone]
== END ==
PROVIDERS: PCP Family Medicine; Referring Provider Family Medicine; Visit Provider Family Medicine
DX: D05.11 Intraductal carcinoma in situ of right breast
CPT/HCPCS: 19083; 77065

== ENCOUNTER → 2023-12-23 08:35 | Outpatient (CLI) | payer BC, SELFPAY ==
[2023-12-23 09:10] LABS: Add Manual Diff / Slide Review NO; Basophils Absolute Auto 0 /uL (0-100); Basophils Percent Auto 0.7 % (0-2); Eosinophils Absolute Auto 0 /uL (0-450); Hematocrit 41.8 % (36-46); Hemoglobin 14.2 g/dL (12.0-16.0); Lymphocytes Absolute Auto 1600 /uL (1100-4500); Lymphocytes Percent Auto 38.2 % (25-40); Mean Corpuscular HGB Conc 33.9 % (30-36); Mean Corpuscular Hemoglobin 32.3 PG (26-34); Mean Corpuscular Volume 95.4 fL (80-100); Monocytes Absolute Auto 200 /uL (0-900); Monocytes Percent Auto 5.7 % (3-14); Neutrophils Absolute Auto 2300 /uL (1500-7000); Neutrophils Percent Auto 54.4 % (50-75); Platelet Count 216 X10^3/uL (150-400); Red Blood Cell Count 4.39 X10^6/uL (4.0-5.2); Red Cell Distribution Width 13.3 % (11.6-14.8); White Blood Cell Count 4.3 X10^3/uL (4.5-11.0)
[2023-12-23 09:28] LABS: Alanine Aminotransferase 14 IU/L (<35); Albumin 4.1 g/dL (3.5-5.0); Albumin Globulin Ratio 1.6 (1.0-2.8); Alkaline Phosphatase 49 U/L (38-126); Aspartate Aminotransferase 21 IU/L (14-36); BUN Creatinine Ratio 20.7 (6-22); Bilirubin Total 0.7 mg/dL (0.2-1.3); Blood Urea Nitrogen 17 mg/dL (7-17); Calcium 9.6 mg/dL (8.4-10.2); Carbon Dioxide 29 mmol/L (22-32); Chloride 106 mmol/L (98-107); Cholesterol 200 mg/dL (140-199); Estimated Glomerular Filt Rate > 60 mL/min (>60); Globulin 2.6 g/dL (1.7-4.1); Glucose 90 mg/dL (80-110); HDL Cholesterol 79 mg/dL (40-60); HEMOLYSIS < 15 (0-50); LDL Cholesterol Calculated 106 mg/dL (<100); Potassium 4.5 mmol/L (3.4-5.1); Sodium 139 mmol/L (137-145); Total Protein 6.7 g/dL (6.3-8.2); Triglycerides 76 mg/dL (35-150)
[2023-12-23 09:58] LABS: TSH w/ Reflex to FT4 0.43 uIU/mL (0.47-4.68)
[2023-12-23 10:22] LABS: Free T4, Direct Thyroxine 1.12 ng/dL (0.78-2.19)
== END ==
PROVIDERS: PCP Family Medicine; Referring Provider Family Medicine; Visit Provider Family Medicine
DX: R79.89 Other specified abnormal findings of blood chemistry (principal); E78.5 Hyperlipidemia, unspecified; G43.909 Migraine, unspecified, not intractable, without status migrainosus; N63.10 Unspecified lump in the right breast, unspecified quadrant
CPT/HCPCS: 36415; 80053; 80061; 84439; 84443; 85025

== ENCOUNTER → 2024-07-13 13:55 | Outpatient (CLI) | payer BC, SELFPAY ==
--- NOTE | 2024-07-13 13:58 | DI.RAD.S_ITS ---
PROCEDURE: XR HIP RT 2V INDICATIONS: Right Hip Pain TECHNIQUE: AP view of the pelvis, lateral view of the right hip COMPARISON: None. FINDINGS: Diffuse osseous demineralization. No acute fracture or dislocation. 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 on the right and 131? on the left (125-135? is normal). Mild bilateral hip osteoarthritis. Mild bilateral sacroiliac joint osteoarthritis. Mild pubic symphysis osteoarthritis. Enthesopathic remodeling at the ischial tuberosities. IMPRESSION: Mild right hip osteoarthritis. Dictated by: Russel Gar M.D. on 07/13/2024 at 15:34 Approved by: Russel Gar M.D. on 07/13/2024 at 15:37
== END ==
PROVIDERS: Family Provider Family Medicine; PCP Family Medicine; Referring Provider Family Medicine; Visit Provider Family Medicine
DX: M16.11 Unilateral primary osteoarthritis, right hip (principal); M25.551 Pain in right hip; M70.71 Other bursitis of hip, right hip; Z68.21 Body mass index [BMI] 21.0-21.9, adult
CPT/HCPCS: 73502; 99213

== ENCOUNTER 2024-08-08 06:03 | Day surgery (SDC) | payer BC, SELFPAY ==
[2024-08-04 08:58] VITALS: BMI 20.3
[2024-08-08 06:43] VITALS: BP 131/75; PULSE 55; RESP 15; TEMP 36.9; O2SAT 100; BMI 20.3
[2024-08-08] MEDS: LACTATED RINGERS 1,000 ML 42 ML IV (06:53)
--- NOTE | 2024-08-08 07:27 | PM.PREOP ---
Pre-operative Note Interval Note History & Physical reviewed/Exam performed by Physician: Yes Changes to H&P: No
[2024-08-08] MEDS: CEFAZOLIN 2 GM/100 ML PREMIX 100 ML IV (07:45)
--- NOTE | 2024-08-08 08:04 | SUR.OPER ---
Supine on padded OR bed, head on pillow, right arm secured on padded arm boards at <90 degrees abduction,left arm draped free on black hand table legs uncrossed, safety belt at thigh, tape over blanket over lower legs.
[2024-08-08] MEDS: BUPIVACAINE 0.25% (PF) VIAL 30 ML INJ (08:18)
[2024-08-08 08:30] VITALS: BP 124/78; PULSE 60; RESP 16; TEMP 36.2; O2SAT 99
[2024-08-08 08:35] VITALS: BP 124/75; PULSE 57; RESP 16; O2SAT 98
--- NOTE | 2024-08-08 08:35 | PM.OP.1 ---
Operative Date/Time/Diagnoses Date of procedure: 08/08/24 Time of procedure: 08:36 Pre-op diagnosis: Left Index Finger Mass Post-op diagnosis: same Procedure & Clinicians Procedure: Left Index Finger Mass Excision Same procedure as scheduled: Yes Surgeon: Morgan Bravo Click Yes if Unassisted: Yes Anesthesia Type: General Operative Notes Findings: Laterality: LEFT Preoperative diagnosis: Index Finger Mass Procedure performed: Index Finger Mass Excision Postoperative diagnosis: Same Primary Surgeon: Morgan Bravo MD Secondary Surgeon: None Anesthesia: General EBL: 3 ml Tourniquet: 22 minutes @ 250 mmHg Implants: None Indication For Surgery: Symptomatic mass despite non-operative treatments. The risks, benefits, and alternatives were discussed. Risks include pain, bleeding, infection, damage to nearby structures and cartilage, lack of symptom relief, need for further surgery, DVT, PE, stroke, and . Written consent was obtained. 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 Consent was verified and operative extremity was signed. The patient then met with anesthesia and was brought back to the operating room. The patient was placed supine on the operating table. Anesthetic was administered. The extremity was then prepped and draped in the usual sterile fashion. A timeout was performed per protocol. All were in agreement and we proceeded. A 3cm sandoval incision was utilized centered over the mass. Scissor dissection was brought down through the subcutaneous tissues until the mass was identified. THe mass had a brownish yellow appearance and was associated with the extensor tendon. THe mass was easily shelled out and was removed. THe wound was inspected for other masses however there was no other evidence of additional masses. THe wound was irrigated with sterile fluid. The skin was closed with 4-0 interupted nylonl. A sterile dressing and splint was applied. Postoperative Plan: Same day surgery discharge Splint on until follow up 2 week follow up for splint & suture removal. Home ROM. No manual labor 6 week follow up with planned release to full activity Morgan Bravo MD Applied: cast(s) Estimated Blood Loss (mL): 3 Complications: none
[2024-08-08 08:40] VITALS: BP 114/75; PULSE 77; RESP 18; O2SAT 98
[2024-08-08 08:45] VITALS: BP 114/75; PULSE 67; RESP 16; TEMP 36.2; O2SAT 98
[2024-08-08 08:54] VITALS: BP 120/70; PULSE 56; RESP 16; TEMP 36.2; O2SAT 98
== END 2024-08-08 09:29 | disposition home or self-care (01) ==
PROVIDERS: Family Provider Family Medicine; PCP Family Medicine; Referring Provider Orthopaedic Surgery; Visit Provider Orthopaedic Surgery
PROC: (CPT 26111; principal; 2024-08-08 07:45)
DX: R22.32 Localized swelling, mass and lump, left upper limb (principal)
CPT/HCPCS: 26111; J0690; J1100; J2704; J3010

== ENCOUNTER 2024-09-27 11:30 | Outpatient (RCR) | payer BC, SELFPAY ==
--- NOTE | 2024-08-01 16:02 | PT.OTN ---
Current Diagnoses Pain in right hip (08/01/24) Physical Therapy Treatment Note PT-OP-A Visit Information Start: 08/01/24 08:59 Freq: Status: Active Protocol: Document 08/01/24 09:03 GG (Rec: 08/01/24 09:53 GG [id number]) Out-Patient Physical Therapy Visit Information Visit Information Visit Type Initial Evaluation Visit Start Time 09:03 Visit Stop Time 09:45 Visit Number 1 Number of POST TENSIONING IRONWORKER Visits 0 PT-OP-B Current Condition Start: 08/01/24 08:59 Freq: Status: Active Protocol: Document 08/01/24 09:03 GG (Rec: 08/01/24 09:53 GG [id number]) Current Condition History of Current Condition Onset Date May 2024 Current Complaints R hip pain History of Current Pt notes that she had UE radiation done from Mar-May Condition and hx of mastectomy Dec 2024. Notes that hip pain started a week following finishing radiation, but unsure if that is contributing. She was going to lift her leg into car and couldn't, w/ pain. Pt shows that pain is primarily anterior, but comes laterally around the hip. Went to [facility] and they said her R hip was just tight, got prescribed meloxicam and is using ice. Still has difficulty getting into and out of the car. Notes hip pain has improved since May. Has tried a standing quad stretch, but she doesn't feel like it stretches the right spot. Bikes a lot and notes that it feels unstable, weak, and painful when bringing leg up while pedaling and pushing up a hill. Notes hip pain is worst w/ uphill cycling. Typically bikes 20 miles but can't do her normal route d/t there being a large hill. Can still bike 18 miles, but she feels her hip the whole time while biking. Treatment Goals Patient/Caregiver bike without pain, get stronger Goals PT-OP-C Subjective Start: 08/01/24 08:59 Freq: Status: Active Protocol: Document 08/01/24 09:03 GG (Rec: 08/01/24 09:53 GG [id number]) Patient Questionnaires Lower Extremity Functional Scale LEFS Score 58/80 PT-OP-J Posture/Palpation/Skin Start: 08/01/24 08:59 Freq: Status: Active Protocol: Document 08/01/24 09:03 GG (Rec: 08/02/24 15:15 GG [id number]) Posture Evaluation Comments Posture Comments R iliac crest higher than L, equal greater trochanters PT-OP-L Special Tests Start: 08/01/24 08:59 Freq: Status: Active Protocol: Document 08/01/24 09:03 GG (Rec: 08/01/24 09:53 GG [id number]) Special Tests Hip Special Tests DIOR Test Results pos on R Fidel Test Results pos on R Comments notes pain on L side w/ hip flexion PT-OP-M Strength Start: 08/01/24 08:59 Freq: Status: Active Protocol: Document 08/01/24 09:03 GG (Rec: 08/01/24 09:53 GG [id number]) Hip Strength Hip Manual Muscle Testing Right Flexion (L2) 4 Good Extension (S1) 3+ Fair+ Abduction 4 Good Adduction 4+ Good+ External Rotation 5 Normal Internal Rotation 5 Normal Left Flexion (L2) 4+ Good+ Extension (S1) 4+ Good+ Abduction 4+ Good+ Adduction 5 Normal External Rotation 5 Normal Internal Rotation 5 Normal Comments pain in R hip w/ L adduction; better w/ change in R leg positioning Knee Strength Knee Manual Muscle Testing Right Flexion (S2) 5 Normal Extension (L3) 4+ Good+ Left Flexion (S2) 5 Normal Extension (L3) 4+ Good+ Ankle/Foot Strength Ankle and Foot Manual Muscle Testing Right Dorsiflexion (L4) 5 Normal Plantarflexion (S1) 5 Normal Left Dorsiflexion (L4) 5 Normal Plantarflexion (S1) 5 Normal PT-OP-Q Treatments Start: 08/01/24 08:59 Freq: Status: Active Protocol: Document 08/01/24 09:03 GG (Rec: 08/02/24 15:33 GG [id number]) Therapeutic Exercises Standing Exercises hip extension Side bilateral Reps/Minutes 10x Comments cue for upright trunk and leaning forward hip ABD Side bilateral Reps/Minutes 10x Comments cue for bend in standing knee, smaller ROM Other Exercises stretches Other Exercise Name kneeling hip flexor Side bilateral Reps/Minutes 45 sec Comments cue for upright trunk and leaning forward PT-OP-T Assessment and Plan Start: 08/01/24 08:59 Freq: Status: Active Protocol: Document 08/01/24 09:03 GG (Rec: 08/01/24 09:53 [id number]) Physical Therapy Assessment Rehab Potential Rehabilitation Good Potential Evaluation Complexity Number of Personal 3 or More Factors/ Comorbidities Number of Body 3 Systems Impaired Clinical Evolving Presentation at Evaluation Impairments Impairments Activity Tolerance,Coordination,Functional Activities, Functional Mobility,Gait,Pain,Strength Goals activity Short Term Goal (STG Pt will be able to get into/out of the car w/out pain. ) STG Duration 08/26/24 Jail Goal (LTG) Pt will be able to bike her normal route, including the uphill w/out pain. LTG Duration 09/27/24 LEFS Impairment 58/80 Short Term Goal (STG Pt will score at least a 62/80 to show improved ) function and ability to perform activities. STG Duration 08/26/24 Artists' Booking Representative Goal (LTG) Pt will score at least a 65/80 to show improved function and ability to perform activities. LTG Duration 09/27/24 strength Short Term Goal (STG Pt will be independent in HEP. ) STG Duration 08/26/24 Jail Goal (LTG) Pt will score at least a 4+/5 on BLE MMTs to improved strength and better ability to perform functional goals . LTG Duration 09/27/24 Assessment Summary Assessment Nidia is a 69 y/o presenting to PT w/ R hip pain and shows some signs of hip impingement based on testing. The hip pain as well as strength deficits lead to limitations in performance of biking and getting into and out of her car. She will benefit from skilled PT to improve strength and reduce hip pain so she can better perform her activities. Physical Therapy Plan Frequency and Duration Frequency of 2x/Week Treatment Duration of 8 treatment (weeks) Plan of Care Start 08/01/24 Date Plan of Care End 09/27/24 Date Therapeutic Interventions Therapeutic Coordination Training,Gait Training,Home Exercise Interventions Program,Manual Therapy,Neuromuscular Re-education, Patient/Caregiver Education,Self-Care/Home Management, Soft Tissue Mobilization,Therapeutic Activities, Therapeutic Exercises Modalities Cold Pack/Ice Massage,Electric Stimulation,Hot Packs, Infrared Therapy,Traction- Mechanical,Ultrasound Next Visit Focus/Plan Next Note Type Treatment Note Next Visit Plan LE strengthening: quad, glutes, adductors; manual tx: hip mobilizations, assess pelvis/innominates, potentially soft tissue/stretches
--- NOTE | 2024-08-01 16:08 | PT.OIE ---
Addendum entered and electronically signed by Maria M Gracia, PT 08/02/24 17:56: PT direct supervision and direction to student PT Xochilt Jacobsen throughout session Original Note: Current Diagnoses Pain in right hip (08/01/24) Past Medical History (Last Updated 06/28/24 @ 11:04 by Denice Dyer DO) Breast mass, right Chicken pox Ductal carcinoma in situ (DCIS) of breast Encounter for subsequent annual wellness visit (AWV) in Medicare patient Fibroids (~2004) Fractures Hearing loss Hx of migraine headaches (~1975) Left groin mass Measles Mumps Osteopenia determined by x-ray Pain associated with vaginal penetration Vaginal atrophy Past Surgical History (Last Reviewed 01/05/23 @ 14:17 by ELLA Tam) Anesthesia History of hysterectomy (~2004) History of mandibular surgery (~1986) Visit Care Team Role Provider Type Denice Dyer DO Attending Provider Physician Family Provider Primary Care Provider Referring Provider Specialty: [facility] Practice Address: [address] [place] [address], [address], [facility] Email: [email or web address] Physical Therapy Initial Evaluation PT-OP-A Visit Information Start: 08/01/24 08:59 Freq: Status: Active Protocol: Document 08/01/24 09:03 GG (Rec: 08/01/24 09:53 GG [id number]) Out-Patient Physical Therapy Visit Information Visit Information Visit Type Initial Evaluation Visit Start Time 09:03 Visit Stop Time 09:45 Visit Number 1 Number of PRINT PRODUCTION MANAGER Visits 0 PT-OP-B Current Condition Start: 08/01/24 08:59 Freq: Status: Active Protocol: Document 08/01/24 09:03 GG (Rec: 08/01/24 09:53 GG [id number]) Current Condition History of Current Condition Onset Date May 2024 Current Complaints R hip pain History of Current Pt notes that she had UE radiation done from Mar-May Condition and hx of mastectomy Dec 2024. Notes that hip pain started a week following finishing radiation, but unsure if that is contributing. She was going to lift her leg into car and couldn't, w/ pain. Pt shows that pain is primarily anterior, but comes laterally around the hip. Went to [facility] and they said her R hip was just tight, got prescribed meloxicam and is using ice. Still has difficulty getting into and out of the car. Notes hip pain has improved since May. Has tried a standing quad stretch, but she doesn't feel like it stretches the right spot. Bikes a lot and notes that it feels unstable, weak, and painful when bringing leg up while pedaling and pushing up a hill. Notes hip pain is worst w/ uphill cycling. Typically bikes 20 miles but can't do her normal route d/t there being a large hill. Can still bike 18 miles, but she feels her hip the whole time while biking. Treatment Goals Patient/Caregiver bike without pain, get stronger Goals PT-OP-C Subjective Start: 08/01/24 08:59 Freq: Status: Active Protocol: Document 08/01/24 09:03 GG (Rec: 08/01/24 09:53 GG [id number]) Patient Questionnaires Lower Extremity Functional Scale LEFS Score 58/80 PT-OP-J Posture/Palpation/Skin Start: 08/01/24 08:59 Freq: Status: Active Protocol: Document 08/01/24 09:03 GG (Rec: 08/02/24 15:15 GG [id number]) Posture Evaluation Comments Posture Comments R iliac crest higher than L, equal greater trochanters PT-OP-L Special Tests Start: 08/01/24 08:59 Freq: Status: Active Protocol: Document 08/01/24 09:03 GG (Rec: 08/01/24 09:53 GG [id number]) Special Tests Hip Special Tests DIOR Test Results pos on R Fidel Test Results pos on R Comments notes pain on L side w/ hip flexion PT-OP-M Strength Start: 08/01/24 08:59 Freq: Status: Active Protocol: Document 08/01/24 09:03 GG (Rec: 08/01/24 09:53 GG [id number]) Hip Strength Hip Manual Muscle Testing Right Flexion (L2) 4 Good Extension (S1) 3+ Fair+ Abduction 4 Good Adduction 4+ Good+ External Rotation 5 Normal Internal Rotation 5 Normal Left Flexion (L2) 4+ Good+ Extension (S1) 4+ Good+ Abduction 4+ Good+ Adduction 5 Normal External Rotation 5 Normal Internal Rotation 5 Normal Comments pain in R hip w/ L adduction; better w/ change in R leg positioning Knee Strength Knee Manual Muscle Testing Right Flexion (S2) 5 Normal Extension (L3) 4+ Good+ Left Flexion (S2) 5 Normal Extension (L3) 4+ Good+ Ankle/Foot Strength Ankle and Foot Manual Muscle Testing Right Dorsiflexion (L4) 5 Normal Plantarflexion (S1) 5 Normal Left Dorsiflexion (L4) 5 Normal Plantarflexion (S1) 5 Normal PT-OP-Q Treatments Start: 08/01/24 08:59 Freq: Status: Active Protocol: Document 08/01/24 09:03 GG (Rec: 08/02/24 15:33 GG [id number]) Therapeutic Exercises Standing Exercises hip extension Side bilateral Reps/Minutes 10x Comments cue for upright trunk and leaning forward hip ABD Side bilateral Reps/Minutes 10x Comments cue for bend in standing knee, smaller ROM Other Exercises stretches Other Exercise Name kneeling hip flexor Side bilateral Reps/Minutes 45 sec Comments cue for upright trunk and leaning forward PT-OP-T Assessment and Plan Start: 08/01/24 08:59 Freq: Status: Active Protocol: Document 08/01/24 09:03 GG (Rec: 08/01/24 09:53 GG [id number]) Physical Therapy Assessment Rehab Potential Rehabilitation Good Potential Evaluation Complexity Number of Personal 3 or More Factors/ Comorbidities Number of Body 3 Systems Impaired Clinical Evolving Presentation at Evaluation Impairments Impairments Activity Tolerance,Coordination,Functional Activities, Functional Mobility,Gait,Pain,Strength Goals activity Short Term Goal (STG Pt will be able to get into/out of the car w/out pain. ) STG Duration 08/26/24 Whipped Topping Finisher Goal (LTG) Pt will be able to bike her normal route, including the uphill w/out pain. LTG Duration 09/27/24 LEFS Impairment 58/80 Short Term Goal (STG Pt will score at least a 62/80 to show improved ) function and ability to perform activities. STG Duration 08/26/24 Custodial Goal (LTG) Pt will score at least a 65/80 to show improved function and ability to perform activities. LTG Duration 09/27/24 strength Short Term Goal (STG Pt will be independent in HEP. ) STG Duration 08/26/24 Whipped Topping Finisher Goal (LTG) Pt will score at least a 4+/5 on BLE MMTs to improved strength and better ability to perform functional goals . LTG Duration 09/27/24 Assessment Summary Assessment Nidia is a 69 y/o presenting to PT w/ R hip pain and shows some signs of hip impingement based on testing. The hip pain as well as strength deficits lead to limitations in performance of biking and getting into and out of her car. She will benefit from skilled PT to improve strength and reduce hip pain so she can better perform her activities. Physical Therapy Plan Frequency and Duration Frequency of 2x/Week Treatment Duration of 8 treatment (weeks) Plan of Care Start 08/01/24 Date Plan of Care End 09/27/24 Date Therapeutic Interventions Therapeutic Coordination Training,Gait Training,Home Exercise Interventions Program,Manual Therapy,Neuromuscular Re-education, Patient/Caregiver Education,Self-Care/Home Management, Soft Tissue Mobilization,Therapeutic Activities, Therapeutic Exercises Modalities Cold Pack/Ice Massage,Electric Stimulation,Hot Packs, Infrared Therapy,Traction- Mechanical,Ultrasound Next Visit Focus/Plan Next Note Type Treatment Note Next Visit Plan LE strengthening: quad, glutes, adductors; manual tx: hip mobilizations, assess pelvis/innominates, potentially soft tissue/stretches
--- NOTE | 2024-08-03 17:49 | PT.OTN ---
Addendum entered and electronically signed by Maria M rGacia, PT 08/03/24 18:14: PT direct supervision and direction to student PT Xochilt Jacobsen throughout session Original Note: Current Diagnoses Pain in right hip (08/03/24) Physical Therapy Treatment Note PT-OP-A Visit Information Start: 08/01/24 08:59 Freq: Status: Active Protocol: Document 08/03/24 09:05 GG (Rec: 08/03/24 10:38 GG [id number]) Out-Patient Physical Therapy Visit Information Visit Information Visit Type Treatment Note Visit Start Time 09:05 Visit Stop Time 09:50 Visit Number 2 Number of OPERATIONS SUPPORT SPECIALIST Visits 0 PT-OP-B Current Condition Start: 08/01/24 08:59 Freq: Status: Active Protocol: Document 08/01/24 09:03 GG (Rec: 08/01/24 09:53 GG [id number]) Current Condition History of Current Condition Onset Date May 2024 Current Complaints R hip pain History of Current Pt notes that she had UE radiation done from Mar-May Condition and hx of mastectomy Dec 2024. Notes that hip pain started a week following finishing radiation, but unsure if that is contributing. She was going to lift her leg into car and couldn't, w/ pain. Pt shows that pain is primarily anterior, but comes laterally around the hip. Went to [facility] and they said her R hip was just tight, got prescribed meloxicam and is using ice. Still has difficulty getting into and out of the car. Notes hip pain has improved since May. Has tried a standing quad stretch, but she doesn't feel like it stretches the right spot. Bikes a lot and notes that it feels unstable, weak, and painful when bringing leg up while pedaling and pushing up a hill. Notes hip pain is worst w/ uphill cycling. Typically bikes 20 miles but can't do her normal route d/t there being a large hill. Can still bike 18 miles, but she feels her hip the whole time while biking. Treatment Goals Patient/Caregiver bike without pain, get stronger Goals PT-OP-C Subjective Start: 08/01/24 08:59 Freq: Status: Active Protocol: Document 08/03/24 09:05 GG (Rec: 08/03/24 10:38 GG [id number]) OP-PT Subjective Patient Comments Patient Comments Pt reports that the hip flexor stretch has been very good and she has been doing it a lot, about 6x per day. Comments that she is sore from the exercises, but says she has been doing them a couple times a day while she is watching TV. Confirmed that it is just muscle soreness. She is biking later today. PT-OP-J Posture/Palpation/Skin Start: 08/01/24 08:59 Freq: Status: Active Protocol: Document 08/01/24 09:03 GG (Rec: 08/02/24 15:15 GG [id number]) Posture Evaluation Comments Posture Comments R iliac crest higher than L, equal greater trochanters PT-OP-L Special Tests Start: 08/01/24 08:59 Freq: Status: Active Protocol: Document 08/01/24 09:03 GG (Rec: 08/01/24 09:53 GG [id number]) Special Tests Hip Special Tests DIOR Test Results pos on R Fidel Test Results pos on R Comments notes pain on L side w/ hip flexion PT-OP-M Strength Start: 08/01/24 08:59 Freq: Status: Active Protocol: Document 08/01/24 09:03 GG (Rec: 08/01/24 09:53 GG [id number]) Hip Strength Hip Manual Muscle Testing Right Flexion (L2) 4 Good Extension (S1) 3+ Fair+ Abduction 4 Good Adduction 4+ Good+ External Rotation 5 Normal Internal Rotation 5 Normal Left Flexion (L2) 4+ Good+ Extension (S1) 4+ Good+ Abduction 4+ Good+ Adduction 5 Normal External Rotation 5 Normal Internal Rotation 5 Normal Comments pain in R hip w/ L adduction; better w/ change in R leg positioning Knee Strength Knee Manual Muscle Testing Right Flexion (S2) 5 Normal Extension (L3) 4+ Good+ Left Flexion (S2) 5 Normal Extension (L3) 4+ Good+ Ankle/Foot Strength Ankle and Foot Manual Muscle Testing Right Dorsiflexion (L4) 5 Normal Plantarflexion (S1) 5 Normal Left Dorsiflexion (L4) 5 Normal Plantarflexion (S1) 5 Normal PT-OP-Q Treatments Start: 08/01/24 08:59 Freq: Status: Active Protocol: Document 08/03/24 09:05 GG (Rec: 08/03/24 10:38 GG [id number]) Therapeutic Exercises Supine Exercises bridge Side bilateral Reps/Minutes 15x Standing Exercises step ups Standing Exercise 6 Name Side bilateral Reps/Minutes 15x ea squat Standing Exercise STS to mat table about 24 Name Reps/Minutes 20x Comments cue for hips back and slight fwd trunk lean march Side bilateral Reps/Minutes 10x Comments cue to lift leg // to ground Manual Therapy Treatment Consent Patient gave verbal Yes consent for manual treatment Soft Tissue Mobilization hip Body Location B iliopsoas and hamstring Mobilization Type Sustained Pressure Intensity/Depth Moderate Body Position Supine Comments c/r hip flexion Joint Mobilizations inf Joint B hip Direction inferior Grade IV Body Position Supine Comments c/r hip flexion PT-OP-T Assessment and Plan Start: 08/01/24 08:59 Freq: Status: Active Protocol: Document 08/03/24 09:05 GG (Rec: 08/03/24 10:38 GG [id number]) Physical Therapy Assessment Goals activity Short Term Goal (STG Pt will be able to get into/out of the car w/out pain. ) STG Duration 08/26/24 Change Management Lead Goal (LTG) Pt will be able to bike her normal route, including the uphill w/out pain. LTG Duration 09/27/24 LEFS Impairment 58/80 Short Term Goal (STG Pt will score at least a 62/80 to show improved ) function and ability to perform activities. STG Duration 08/26/24 Half-Way Goal (LTG) Pt will score at least a 65/80 to show improved function and ability to perform activities. LTG Duration 09/27/24 strength Short Term Goal (STG Pt will be independent in HEP. ) STG Duration 08/26/24 Half-Way Goal (LTG) Pt will score at least a 4+/5 on BLE MMTs to improved strength and better ability to perform functional goals . LTG Duration 09/27/24 Assessment Summary Assessment Pt has good response to manual tx with some increase in hip flexion before she could feel any pinching. Pt ed regarding pacing w/ HEP to prevent excessive soreness. Pt requires more cueing initially for exercise set-up but demonstrates good form and retention of understanding. Physical Therapy Plan Frequency and Duration Frequency of 2x/Week Treatment Duration of 8 treatment (weeks) Plan of Care Start 08/01/24 Date Plan of Care End 09/27/24 Date Therapeutic Interventions Therapeutic Coordination Training,Gait Training,Home Exercise Interventions Program,Manual Therapy,Neuromuscular Re-education, Patient/Caregiver Education,Self-Care/Home Management, Soft Tissue Mobilization,Therapeutic Activities, Therapeutic Exercises Modalities Cold Pack/Ice Massage,Electric Stimulation,Hot Packs, Infrared Therapy,Traction- Mechanical,Ultrasound Next Visit Focus/Plan Next Note Type Treatment Note Next Visit Plan LE strengthening: quad, glutes, adductors; manual tx: hip mobilizations, assess pelvis/innominates, soft tissue/stretches: hip flexors and hamstrings
--- NOTE | 2024-08-10 12:37 | PT.OTN ---
Current Diagnoses Pain in right hip (08/10/24) Physical Therapy Treatment Note PT-OP-A Visit Information Start: 08/01/24 08:59 Freq: Status: Active Protocol: Document 08/10/24 10:41 AB (Rec: 08/10/24 12:21 AB Laptop) Out-Patient Physical Therapy Visit Information Visit Information Visit Type Treatment Note Visit Start Time 10:48 Visit Stop Time 11:31 Visit Number 3 ( PN by 08/31/2024) Number of SOLUTION MAKER Visits 1 PT-OP-B Current Condition Start: 08/01/24 08:59 Freq: Status: Active Protocol: Document 08/01/24 09:03 GG (Rec: 08/01/24 09:53 GG [id number]) Current Condition History of Current Condition Onset Date May 2024 Current Complaints R hip pain History of Current Pt notes that she had UE radiation done from Mar-May Condition and hx of mastectomy Dec 2024. Notes that hip pain started a week following finishing radiation, but unsure if that is contributing. She was going to lift her leg into car and couldn't, w/ pain. Pt shows that pain is primarily anterior, but comes laterally around the hip. Went to [facility] and they said her R hip was just tight, got prescribed meloxicam and is using ice. Still has difficulty getting into and out of the car. Notes hip pain has improved since May. Has tried a standing quad stretch, but she doesn't feel like it stretches the right spot. Bikes a lot and notes that it feels unstable, weak, and painful when bringing leg up while pedaling and pushing up a hill. Notes hip pain is worst w/ uphill cycling. Typically bikes 20 miles but can't do her normal route d/t there being a large hill. Can still bike 18 miles, but she feels her hip the whole time while biking. Treatment Goals Patient/Caregiver bike without pain, get stronger Goals PT-OP-C Subjective Start: 08/01/24 08:59 Freq: Status: Active Protocol: Document 08/10/24 10:41 AB (Rec: 08/10/24 12:21 AB Laptop) OP-PT Subjective Patient Comments Patient Comments Patient reports she is way better. Patient reports having no hip pain start of session. PT-OP-J Posture/Palpation/Skin Start: 08/01/24 08:59 Freq: Status: Active Protocol: Document 08/01/24 09:03 GG (Rec: 08/02/24 15:15 GG [id number]) Posture Evaluation Comments Posture Comments R iliac crest higher than L, equal greater trochanters PT-OP-L Special Tests Start: 08/01/24 08:59 Freq: Status: Active Protocol: Document 08/01/24 09:03 GG (Rec: 08/01/24 09:53 GG [id number]) Special Tests Hip Special Tests DIOR Test Results pos on R Fidel Test Results pos on R Comments notes pain on L side w/ hip flexion PT-OP-M Strength Start: 08/01/24 08:59 Freq: Status: Active Protocol: Document 08/01/24 09:03 GG (Rec: 08/01/24 09:53 GG [id number]) Hip Strength Hip Manual Muscle Testing Right Flexion (L2) 4 Good Extension (S1) 3+ Fair+ Abduction 4 Good Adduction 4+ Good+ External Rotation 5 Normal Internal Rotation 5 Normal Left Flexion (L2) 4+ Good+ Extension (S1) 4+ Good+ Abduction 4+ Good+ Adduction 5 Normal External Rotation 5 Normal Internal Rotation 5 Normal Comments pain in R hip w/ L adduction; better w/ change in R leg positioning Knee Strength Knee Manual Muscle Testing Right Flexion (S2) 5 Normal Extension (L3) 4+ Good+ Left Flexion (S2) 5 Normal Extension (L3) 4+ Good+ Ankle/Foot Strength Ankle and Foot Manual Muscle Testing Right Dorsiflexion (L4) 5 Normal Plantarflexion (S1) 5 Normal Left Dorsiflexion (L4) 5 Normal Plantarflexion (S1) 5 Normal PT-OP-Q Treatments Start: 08/01/24 08:59 Freq: Status: Active Protocol: Document 08/10/24 10:41 AB (Rec: 08/10/24 12:21 AB Laptop) Therapeutic Exercises Supine Exercises piriformis stretch Supine Exercise Name from hooklying towel roll at groin L LE HEP Reps/Minutes 60 sec Comments L with rep pinching/eliminated with towel roll R no towel roll Modified Fidel stretch Supine Exercise Name HEP Side bilateral Reps/Minutes 60 sec and AROM knee flexion X 10 Comments verbal cues Gait Training Gait Activity ambulation without device Comments Pt demonstrates how she has been ambulating, and ambulates with inc knee and hip flexion, large steps. Verbal cues for heel toe pattern ~50 feet Manual Therapy Treatment Consent Patient gave verbal Yes consent for manual treatment Soft Tissue Mobilization hip Body Location B iliopsoas and hamstring, piriformis Mobilization Type Sustained Pressure Intensity/Depth Moderate Body Position Hooklying Comments and sidelying with AROM hip IR and knee flex ex Manual Techniques L AI R PI Reps/Duration 6 x 6 sec each for pubic shot gun and L AI R PIL PT-OP-T Assessment and Plan Start: 08/01/24 08:59 Freq: Status: Active Protocol: Document 08/10/24 10:41 AB (Rec: 08/10/24 12:21 AB Laptop) Physical Therapy Assessment Goals activity Short Term Goal (STG Pt will be able to get into/out of the car w/out pain. ) STG Duration 08/26/24 Halfway Goal (LTG) Pt will be able to bike her normal route, including the uphill w/out pain. LTG Duration 09/27/24 LEFS Impairment 58/80 Short Term Goal (STG Pt will score at least a 62/80 to show improved ) function and ability to perform activities. STG Duration 08/26/24 Clinical Asst Goal (LTG) Pt will score at least a 65/80 to show improved function and ability to perform activities. LTG Duration 09/27/24 strength Short Term Goal (STG Pt will be independent in HEP. ) STG Duration 08/26/24 Halfway Goal (LTG) Pt will score at least a 4+/5 on BLE MMTs to improved strength and better ability to perform functional goals . LTG Duration 09/27/24 Assessment Summary Assessment Patient reports having no hip pain end of session ambulating without device. L hip requires towel roll at groin to prevent pinching ant hip with piriformis stretch, but patient reports having no pinching R LE with piriformis stretch. Physical Therapy Plan Frequency and Duration Frequency of 2x/Week Treatment Duration of 8 treatment (weeks) Plan of Care Start 08/01/24 Date Plan of Care End 09/27/24 Date Next Visit Focus/Plan Next Note Type Treatment Note Next Visit Plan LE strengthening: quad/squat, glutes, adductors; manual tx: hip mobilizations, assess pelvis/innominates, soft tissue/stretches: review hip flexors and hamstrings/ possibly assess calf muscle stiffness due to excessive stiffness bilateral piriformis.
--- NOTE | 2024-08-17 12:24 | PT.OTN ---
Current Diagnoses Pain in right hip (08/17/24) Physical Therapy Treatment Note PT-OP-A Visit Information Start: 08/01/24 08:59 Freq: Status: Active Protocol: Document 08/17/24 11:34 AB (Rec: 08/17/24 12:23 AB Laptop) Out-Patient Physical Therapy Visit Information Visit Information Visit Type Treatment Note Visit Start Time 11:34 Visit Stop Time 12:19 Visit Number 4 Number of INSPECTING ENGINEER Visits 2 PT-OP-B Current Condition Start: 08/01/24 08:59 Freq: Status: Active Protocol: Document 08/01/24 09:03 GG (Rec: 08/01/24 09:53 GG [id number]) Current Condition History of Current Condition Onset Date May 2024 Current Complaints R hip pain History of Current Pt notes that she had UE radiation done from Mar-May Condition and hx of mastectomy Dec 2024. Notes that hip pain started a week following finishing radiation, but unsure if that is contributing. She was going to lift her leg into car and couldn't, w/ pain. Pt shows that pain is primarily anterior, but comes laterally around the hip. Went to [facility] and they said her R hip was just tight, got prescribed meloxicam and is using ice. Still has difficulty getting into and out of the car. Notes hip pain has improved since May. Has tried a standing quad stretch, but she doesn't feel like it stretches the right spot. Bikes a lot and notes that it feels unstable, weak, and painful when bringing leg up while pedaling and pushing up a hill. Notes hip pain is worst w/ uphill cycling. Typically bikes 20 miles but can't do her normal route d/t there being a large hill. Can still bike 18 miles, but she feels her hip the whole time while biking. Treatment Goals Patient/Caregiver bike without pain, get stronger Goals PT-OP-C Subjective Start: 08/01/24 08:59 Freq: Status: Active Protocol: Document 08/17/24 11:34 AB (Rec: 08/17/24 12:23 AB Laptop) OP-PT Subjective Patient Comments Patient Comments Patient reports she did her exercises Thursday and was more sore on Thursday. Patient rates pain 2/10 ant R hip start of session. Patient comments she feels the hip is loosening up. PT-OP-J Posture/Palpation/Skin Start: 08/01/24 08:59 Freq: Status: Active Protocol: Document 08/01/24 09:03 GG (Rec: 08/02/24 15:15 GG [id number]) Posture Evaluation Comments Posture Comments R iliac crest higher than L, equal greater trochanters PT-OP-L Special Tests Start: 08/01/24 08:59 Freq: Status: Active Protocol: Document 08/01/24 09:03 GG (Rec: 08/01/24 09:53 GG [id number]) Special Tests Hip Special Tests DIOR Test Results pos on R Fidel Test Results pos on R Comments notes pain on L side w/ hip flexion PT-OP-M Strength Start: 08/01/24 08:59 Freq: Status: Active Protocol: Document 08/01/24 09:03 GG (Rec: 08/01/24 09:53 GG [id number]) Hip Strength Hip Manual Muscle Testing Right Flexion (L2) 4 Good Extension (S1) 3+ Fair+ Abduction 4 Good Adduction 4+ Good+ External Rotation 5 Normal Internal Rotation 5 Normal Left Flexion (L2) 4+ Good+ Extension (S1) 4+ Good+ Abduction 4+ Good+ Adduction 5 Normal External Rotation 5 Normal Internal Rotation 5 Normal Comments pain in R hip w/ L adduction; better w/ change in R leg positioning Knee Strength Knee Manual Muscle Testing Right Flexion (S2) 5 Normal Extension (L3) 4+ Good+ Left Flexion (S2) 5 Normal Extension (L3) 4+ Good+ Ankle/Foot Strength Ankle and Foot Manual Muscle Testing Right Dorsiflexion (L4) 5 Normal Plantarflexion (S1) 5 Normal Left Dorsiflexion (L4) 5 Normal Plantarflexion (S1) 5 Normal PT-OP-Q Treatments Start: 08/01/24 08:59 Freq: Status: Active Protocol: Document 08/17/24 11:34 AB (Rec: 08/17/24 12:23 AB Laptop) Therapeutic Exercises Supine Exercises piriformis stretch Supine Exercise Name from hooklying towel roll at groinR LE HEP Reps/Minutes 60 sec L 15-20 sec X 3 trials with and without towel roll Comments dec veronica R LE even with towel roll L LE veronica/contract relax R LE X 2 manual Modified Fidel stretch Supine Exercise Name HEP Side bilateral Reps/Minutes 60 sec and AROM knee flexion X 10 Comments verbal cues Sidelying Exercises reverse clamshell Side right Reps/Minutes X 15 Comments verbal cues Manual Therapy Treatment Consent Patient gave verbal Yes consent for manual treatment Soft Tissue Mobilization hip Body Location B iliopsoas and hamstring, piriformis Mobilization Type Sustained Pressure Intensity/Depth Moderate Body Position Hooklying Comments and sidelying with AROM hip IR and knee flex ex Joint Mobilizations med to lat R hip Joint R hip Direction med to lat with AROM hip IR Grade IV Body Position Hooklying Reps/Duration X 10 X 3 inf Joint r hip Direction inferior Grade IV Body Position Supine Comments c/r hip flexion and X 10 X 3 without hip flexion PT-OP-T Assessment and Plan Start: 08/01/24 08:59 Freq: Status: Active Protocol: Document 08/17/24 11:34 AB (Rec: 08/17/24 12:23 AB Laptop) Physical Therapy Assessment Goals activity Short Term Goal (STG Pt will be able to get into/out of the car w/out pain. ) STG Duration 08/26/24 Halfway Goal (LTG) Pt will be able to bike her normal route, including the uphill w/out pain. LTG Duration 09/27/24 LEFS Impairment 58/80 Short Term Goal (STG Pt will score at least a 62/80 to show improved ) function and ability to perform activities. STG Duration 08/26/24 Halfway Goal (LTG) Pt will score at least a 65/80 to show improved function and ability to perform activities. LTG Duration 09/27/24 strength Short Term Goal (STG Pt will be independent in HEP. ) STG Duration 08/26/24 Halfway Goal (LTG) Pt will score at least a 4+/5 on BLE MMTs to improved strength and better ability to perform functional goals . LTG Duration 09/27/24 Assessment Summary Assessment Patient rates pain 0/10 end of session R hip ambulating out of session without device. Increased pinching R hip with piriformis stretch persists this session. Physical Therapy Plan Frequency and Duration Frequency of 2x/Week Treatment Duration of 8 treatment (weeks) Plan of Care Start 08/01/24 Date Plan of Care End 09/27/24 Date Next Visit Focus/Plan Next Note Type Treatment Note Next Visit Plan LE strengthening: quad/squat, glutes, adductors; manual tx: hip mobilizations, assess pelvis/innominates, soft tissue/stretches: review hip flexors and hamstrings/ possibly assess calf muscle stiffness due to excessive stiffness bilateral piriformis.
--- NOTE | 2024-08-24 10:39 | PT.OTN ---
Current Diagnoses Pain in right hip (08/24/24) Physical Therapy Treatment Note PT-OP-A Visit Information Start: 08/01/24 08:59 Freq: Status: Active Protocol: Document 08/24/24 09:47 AB (Rec: 08/24/24 10:39 AB [id number]) Out-Patient Physical Therapy Visit Information Visit Information Visit Type Treatment Note Visit Note Access Code: [email or web address] Visit Start Time 09:50 Visit Stop Time 10:34 Visit Number 5(PN fur 08/31/2024) Number of ICE GRINDER Visits 3 PT-OP-B Current Condition Start: 08/01/24 08:59 Freq: Status: Active Protocol: Document 08/01/24 09:03 GG (Rec: 08/01/24 09:53 GG [id number]) Current Condition History of Current Condition Onset Date May 2024 Current Complaints R hip pain History of Current Pt notes that she had UE radiation done from Mar-May Condition and hx of mastectomy Dec 2024. Notes that hip pain started a week following finishing radiation, but unsure if that is contributing. She was going to lift her leg into car and couldn't, w/ pain. Pt shows that pain is primarily anterior, but comes laterally around the hip. Went to [facility] and they said her R hip was just tight, got prescribed meloxicam and is using ice. Still has difficulty getting into and out of the car. Notes hip pain has improved since May. Has tried a standing quad stretch, but she doesn't feel like it stretches the right spot. Bikes a lot and notes that it feels unstable, weak, and painful when bringing leg up while pedaling and pushing up a hill. Notes hip pain is worst w/ uphill cycling. Typically bikes 20 miles but can't do her normal route d/t there being a large hill. Can still bike 18 miles, but she feels her hip the whole time while biking. Treatment Goals Patient/Caregiver bike without pain, get stronger Goals PT-OP-C Subjective Start: 08/01/24 08:59 Freq: Status: Active Protocol: Document 08/24/24 09:47 AB (Rec: 08/24/24 10:39 AB [id number]) OP-PT Subjective Patient Comments Patient Comments Patient reports she felt really good post previous session. Patient reports pain is 1/10 standing up or getting out of car, no pain once she gets going. Patient reports no pain when peddling, but when she stands up to peddle the the R LE is weak pulling up ( uses clips ) PT-OP-J Posture/Palpation/Skin Start: 08/01/24 08:59 Freq: Status: Active Protocol: Document 08/01/24 09:03 GG (Rec: 08/02/24 15:15 GG [id number]) Posture Evaluation Comments Posture Comments R iliac crest higher than L, equal greater trochanters PT-OP-L Special Tests Start: 08/01/24 08:59 Freq: Status: Active Protocol: Document 08/01/24 09:03 GG (Rec: 08/01/24 09:53 GG [id number]) Special Tests Hip Special Tests DIOR Test Results pos on R Fidel Test Results pos on R Comments notes pain on L side w/ hip flexion PT-OP-M Strength Start: 08/01/24 08:59 Freq: Status: Active Protocol: Document 08/01/24 09:03 GG (Rec: 08/01/24 09:53 GG [id number]) Hip Strength Hip Manual Muscle Testing Right Flexion (L2) 4 Good Extension (S1) 3+ Fair+ Abduction 4 Good Adduction 4+ Good+ External Rotation 5 Normal Internal Rotation 5 Normal Left Flexion (L2) 4+ Good+ Extension (S1) 4+ Good+ Abduction 4+ Good+ Adduction 5 Normal External Rotation 5 Normal Internal Rotation 5 Normal Comments pain in R hip w/ L adduction; better w/ change in R leg positioning Knee Strength Knee Manual Muscle Testing Right Flexion (S2) 5 Normal Extension (L3) 4+ Good+ Left Flexion (S2) 5 Normal Extension (L3) 4+ Good+ Ankle/Foot Strength Ankle and Foot Manual Muscle Testing Right Dorsiflexion (L4) 5 Normal Plantarflexion (S1) 5 Normal Left Dorsiflexion (L4) 5 Normal Plantarflexion (S1) 5 Normal PT-OP-Q Treatments Start: 08/01/24 08:59 Freq: Status: Active Protocol: Document 08/24/24 09:47 AB (Rec: 08/24/24 10:39 AB [id number]) Therapeutic Exercises Supine Exercises piriformis stretch Supine Exercise Name from hooklying towel roll at groinR LE HEP Reps/Minutes 60 sec X 2 each LE Comments monitored for pinching Modified Fidel stretch Supine Exercise Name HEP Side bilateral Reps/Minutes 60 sec and AROM knee flexion X 10 Comments verbal cues Standing Exercises Run's april Standing Exercise hip flex with opp UE flex HEP Name Side bilateral Reps/Minutes X 10 with and without UE use Comments verbal and visual cues Manual Therapy Treatment Consent Patient gave verbal Yes consent for manual treatment Soft Tissue Mobilization hip Body Location B iliopsoas and hamstring, piriformis Mobilization Type Sustained Pressure Intensity/Depth Moderate Body Position Hooklying Comments and sidelying with AROM hip IR and knee flex ex Joint Mobilizations med to lat R hip Joint R hip Direction med to lat with AROM hip IR Grade IV Body Position Hooklying Reps/Duration X 10 X 3 inf Joint r hip Direction inferior Grade IV Body Position Supine Comments c/r hip flexion and X 10 X 3 without hip flexion PT-OP-T Assessment and Plan Start: 08/01/24 08:59 Freq: Status: Active Protocol: Document 08/24/24 09:47 AB (Rec: 08/24/24 10:39 AB [id number]) Physical Therapy Assessment Goals activity Short Term Goal (STG Pt will be able to get into/out of the car w/out pain. ) STG Duration 08/26/24 Longterm Goal (LTG) Pt will be able to bike her normal route, including the uphill w/out pain. LTG Duration 09/27/24 LEFS Impairment 58/80 Short Term Goal (STG Pt will score at least a 62/80 to show improved ) function and ability to perform activities. STG Duration 08/26/24 Motor Winder Goal (LTG) Pt will score at least a 65/80 to show improved function and ability to perform activities. LTG Duration 09/27/24 strength Short Term Goal (STG Pt will be independent in HEP. ) STG Duration 08/26/24 Longterm Goal (LTG) Pt will score at least a 4+/5 on BLE MMTs to improved strength and better ability to perform functional goals . LTG Duration 09/27/24 Assessment Summary Assessment Patient reports having no pain end of session, and into session with reports of a little pain with sit to stand after sitting and getting in and out of car and difficulty standing up to peddle bike on hills. Physical Therapy Plan Frequency and Duration Frequency of 2x/Week Treatment Duration of 8 treatment (weeks) Plan of Care Start 08/01/24 Date Plan of Care End 09/27/24 Date Next Visit Focus/Plan Next Note Type Progress Note Next Visit Plan LE strengthening: quad/squat, glutes, adductors; manual tx: hip mobilizations, assess pelvis/innominates, soft tissue/stretches: review hip flexors and hamstrings/ possibly assess calf muscle stiffness due to excessive stiffness bilateral piriformis. Possibly add band to runner's march
--- NOTE | 2024-08-31 18:13 | PT.OTN ---
Current Diagnoses Pain in right hip (08/31/24) Physical Therapy Treatment Note PT-OP-A Visit Information Start: 08/01/24 08:59 Freq: Status: Active Protocol: Document 08/31/24 16:56 AB (Rec: 08/31/24 18:09 AB [id number]) Out-Patient Physical Therapy Visit Information Visit Information Visit Type Treatment Note Visit Note Access Code: [email or web address] Visit Start Time 17:02 Visit Stop Time 17:49 Visit Number 6(PN for 10/02/2024/ Plan ends 09/27/2024) Number of CYCLE REPAIRER Visits 4 PT-OP-B Current Condition Start: 08/01/24 08:59 Freq: Status: Active Protocol: Document 08/01/24 09:03 GG (Rec: 08/01/24 09:53 GG [id number]) Current Condition History of Current Condition Onset Date May 2024 Current Complaints R hip pain History of Current Pt notes that she had UE radiation done from Mar-May Condition and hx of mastectomy Dec 2024. Notes that hip pain started a week following finishing radiation, but unsure if that is contributing. She was going to lift her leg into car and couldn't, w/ pain. Pt shows that pain is primarily anterior, but comes laterally around the hip. Went to [facility] and they said her R hip was just tight, got prescribed meloxicam and is using ice. Still has difficulty getting into and out of the car. Notes hip pain has improved since May. Has tried a standing quad stretch, but she doesn't feel like it stretches the right spot. Bikes a lot and notes that it feels unstable, weak, and painful when bringing leg up while pedaling and pushing up a hill. Notes hip pain is worst w/ uphill cycling. Typically bikes 20 miles but can't do her normal route d/t there being a large hill. Can still bike 18 miles, but she feels her hip the whole time while biking. Treatment Goals Patient/Caregiver bike without pain, get stronger Goals PT-OP-C Subjective Start: 08/01/24 08:59 Freq: Status: Active Protocol: Document 08/31/24 16:56 AB (Rec: 08/31/24 18:09 AB [id number]) OP-PT Subjective Patient Comments Patient Comments Patient reports biking is better, legs feel more even, balanced and stable. Patient reports she can stand up on bike without feeling she will collapse. Patient Questionnaires Lower Extremity Functional Scale LEFS Score 70 (70/80) X 100 =87.5% LEFS Impairment 80 to 99% Impaired (Score 1-16) PT-OP-J Posture/Palpation/Skin Start: 08/01/24 08:59 Freq: Status: Active Protocol: Document 08/01/24 09:03 GG (Rec: 08/02/24 15:15 GG [id number]) Posture Evaluation Comments Posture Comments R iliac crest higher than L, equal greater trochanters PT-OP-L Special Tests Start: 08/01/24 08:59 Freq: Status: Active Protocol: Document 08/01/24 09:03 GG (Rec: 08/01/24 09:53 GG [id number]) Special Tests Hip Special Tests DIOR Test Results pos on R Fidel Test Results pos on R Comments notes pain on L side w/ hip flexion PT-OP-M Strength Start: 08/01/24 08:59 Freq: Status: Active Protocol: Document 08/31/24 16:56 AB (Rec: 08/31/24 18:09 AB [id number]) Hip Strength Hip Manual Muscle Testing Right Flexion (L2) 4 Good Extension (S1) 3+ Fair+ Abduction 4 Good PT-OP-Q Treatments Start: 08/01/24 08:59 Freq: Status: Active Protocol: Document 08/31/24 16:56 AB (Rec: 08/31/24 18:09 AB [id number]) Therapeutic Exercises Supine Exercises piriformis stretch Supine Exercise Name from hooklying towel roll at groin R LE HEP Reps/Minutes R X 60 sec Comments monitored for pinching Modified Fidel stretch Supine Exercise Name HEP Side bilateral Reps/Minutes 60 sec and AROM knee flexion X 10 Comments verbal cues Sidelying Exercises hip abduction Sidelying Exercise back to wall HEP Name Side bilateral Reps/Minutes X15 Comments Verbal cues reverse clamshell Side right Reps/Minutes X 15 Comments verbal cues Standing Exercises Runner's march Standing Exercise hip flex with opp UE flex HEP Name Side bilateral Resistance level one band at ankles HEP Reps/Minutes X 10 with and without UE use Comments verbal and visual cues hip extension Standing Exercise HEP Name Side bilateral Resistance level one band Reps/Minutes 10x Comments with UE support Manual Therapy Treatment Consent Patient gave verbal Yes consent for manual treatment Soft Tissue Mobilization hip Body Location B iliopsoas Mobilization Type Sustained Pressure Intensity/Depth Moderate Body Position Hooklying Comments and sidelying with AROM hip IR and knee flex ex Joint Mobilizations med to lat R hip Joint R hip Direction med to lat with AROM hip IR Grade IV Body Position Hooklying Reps/Duration X 10 X 3 inf Joint r hip Direction inferior Grade IV Body Position Supine PT-OP-T Assessment and Plan Start: 08/01/24 08:59 Freq: Status: Active Protocol: Document 08/31/24 16:56 AB (Rec: 08/31/24 18:09 AB [id number]) Physical Therapy Assessment Goals activity Short Term Goal (STG Pt will be able to get into/out of the car w/out pain. ) 08/31/2024 Patient reports having no pain when getting in and out of care. STG Duration 08/26/24 MET Fdc Goal (LTG) Pt will be able to bike her normal route, including the uphill w/out pain. 08/31/2024 Patient reports we are 80% there for no pain uphill normal route. LTG Duration 09/27/24 LEFS Impairment 58/80 Short Term Goal (STG Pt will score at least a 62/80 to show improved ) function and ability to perform activities. 08/31/2024 - 70 (70/80) X 100 =87.5% STG Duration 08/26/24 MET Fdc Goal (LTG) Pt will score at least a 65/80 to show improved function and ability to perform activities. LTG Duration 09/27/24 strength Short Term Goal (STG Pt will be independent in HEP. ) 08/31/2024: Patient reports performing her HEP daily. STG Duration 08/26/24 MET Blending Machine Feeder Goal (LTG) Pt will score at least a 4+/5 on BLE MMTs to improved strength and better ability to perform functional goals . LTG Duration 09/27/24 Assessment Summary Assessment Patient has met STG's and has made progress toward LTG for bike route without pain, and hip strength continues to be a problem. Patient comments she would like to be able to lift leg over bike rather than lowering bike to lift leg over to position body on bike. Physical Therapy Plan Frequency and Duration Frequency of 2x/Week Treatment Duration of 8 treatment (weeks) Plan of Care Start 08/01/24 Date Plan of Care End 09/27/24 Date Next Visit Focus/Plan Next Note Type Treatment Note Next Visit Plan LE strengthening: quad/squat, glutes, adductors; manual tx: hip mobilizations, assess pelvis/innominates, soft tissue/stretches: review hip flexors and hamstrings/ possibly assess calf muscle stiffness due to excessive stiffness bilateral piriformis.
--- NOTE | 2024-08-31 19:59 | PT.OPPN ---
Current Diagnoses Pain in right hip (08/31/24) Physical Therapy Progress Note PT-OP-A Visit Information Start: 08/01/24 08:59 Freq: Status: Active Protocol: Document 08/31/24 18:30 SOLUTION DIRECTOR (Rec: 08/31/24 19:59 SOLUTION DIRECTOR Laptop) Out-Patient Physical Therapy Visit Information Visit Information Visit Type Progress Note PT-OP-B Current Condition Start: 08/01/24 08:59 Freq: Status: Active Protocol: Document 08/01/24 09:03 GG (Rec: 08/01/24 09:53 GG [id number]) Current Condition History of Current Condition Onset Date May 2024 Current Complaints R hip pain History of Current Pt notes that she had UE radiation done from Mar-May Condition and hx of mastectomy Dec 2024. Notes that hip pain started a week following finishing radiation, but unsure if that is contributing. She was going to lift her leg into car and couldn't, w/ pain. Pt shows that pain is primarily anterior, but comes laterally around the hip. Went to [facility] and they said her R hip was just tight, got prescribed meloxicam and is using ice. Still has difficulty getting into and out of the car. Notes hip pain has improved since May. Has tried a standing quad stretch, but she doesn't feel like it stretches the right spot. Bikes a lot and notes that it feels unstable, weak, and painful when bringing leg up while pedaling and pushing up a hill. Notes hip pain is worst w/ uphill cycling. Typically bikes 20 miles but can't do her normal route d/t there being a large hill. Can still bike 18 miles, but she feels her hip the whole time while biking. Treatment Goals Patient/Caregiver bike without pain, get stronger Goals PT-OP-C Subjective Start: 08/01/24 08:59 Freq: Status: Active Protocol: Document 08/31/24 16:56 AB (Rec: 08/31/24 18:09 AB [id number]) OP-PT Subjective Patient Comments Patient Comments Patient reports biking is better, legs feel more even, balanced and stable. Patient reports she can stand up on bike without feeling she will collapse. Patient Questionnaires Lower Extremity Functional Scale LEFS Score 70 (70/80) X 100 =87.5% LEFS Impairment 80 to 99% Impaired (Score 1-16) PT-OP-J Posture/Palpation/Skin Start: 08/01/24 08:59 Freq: Status: Active Protocol: Document 08/01/24 09:03 GG (Rec: 08/02/24 15:15 GG [id number]) Posture Evaluation Comments Posture Comments R iliac crest higher than L, equal greater trochanters PT-OP-L Special Tests Start: 08/01/24 08:59 Freq: Status: Active Protocol: Document 08/01/24 09:03 GG (Rec: 08/01/24 09:53 GG [id number]) Special Tests Hip Special Tests DIOR Test Results pos on R Fidel Test Results pos on R Comments notes pain on L side w/ hip flexion PT-OP-M Strength Start: 08/01/24 08:59 Freq: Status: Active Protocol: Document 08/31/24 16:56 AB (Rec: 08/31/24 18:09 AB [id number]) Hip Strength Hip Manual Muscle Testing Right Flexion (L2) 4 Good Extension (S1) 3+ Fair+ Abduction 4 Good PT-OP-T Assessment and Plan Start: 08/01/24 08:59 Freq: Status: Active Protocol: Document 08/31/24 18:30 SOLUTION DIRECTOR (Rec: 08/31/24 19:59 SOLUTION DIRECTOR Laptop) Physical Therapy Assessment Impairments Impairments Activity Tolerance,Coordination,Functional Activities, Functional Mobility,Gait,Pain,Strength Goals activity Short Term Goal (STG Pt will be able to get into/out of the car w/out pain. ) 08/31/2024 Patient reports having no pain when getting in and out of care. STG Duration 08/26/24 MET Field Representative/Health Education Goal (LTG) Pt will be able to bike her normal route, including the uphill w/out pain. 08/31/2024 Patient reports we are 80% there for no pain uphill normal route. LTG Duration 09/27/24 LEFS Impairment 58/80 Short Term Goal (STG Pt will score at least a 62/80 to show improved ) function and ability to perform activities. 08/31/2024 - 70 (70/80) X 100 =87.5% STG Duration 08/26/24 MET Correction Goal (LTG) Pt will score at least a 65/80 to show improved function and ability to perform activities. LTG Duration 09/27/24 strength Short Term Goal (STG Pt will be independent in HEP. ) 08/31/2024: Patient reports performing her HEP daily. STG Duration 08/26/24 MET Correction Goal (LTG) Pt will score at least a 4+/5 on BLE MMTs to improved strength and better ability to perform functional goals . 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 Pt will highly benefit from continued skilled PT to continue progressing towards truck terminal manager goals. Physical Therapy Plan Frequency and Duration Frequency of 2x/Week Treatment Duration of 8 treatment (weeks) Plan of Care Start 08/01/24 Date Plan of Care End 09/27/24 Date Therapeutic Interventions Therapeutic Coordination Training,Gait Training,Home Exercise Interventions Program,Manual Therapy,Neuromuscular Re-education, Patient/Caregiver Education,Self-Care/Home Management, Soft Tissue Mobilization,Therapeutic Activities, Therapeutic Exercises Modalities Cold Pack/Ice Massage,Electric Stimulation,Hot Packs, Infrared Therapy,Traction- Mechanical,Ultrasound
--- NOTE | 2024-09-07 15:06 | PT.OTN ---
Current Diagnoses Pain in right hip (09/07/24) Physical Therapy Treatment Note PT-OP-A Visit Information Start: 08/01/24 08:59 Freq: Status: Active Protocol: Document 09/07/24 13:02 [facility] (Rec: 09/07/24 15:06 [facility] [id number]) Out-Patient Physical Therapy Visit Information Visit Information Visit Type Treatment Note Visit Start Time 13:05 Visit Stop Time 13:45 Visit Number 7 (PN due 10/01) Number of CHECK CASHIER Visits 0 PT-OP-B Current Condition Start: 08/01/24 08:59 Freq: Status: Active Protocol: Document 08/01/24 09:03 GG (Rec: 08/01/24 09:53 GG [id number]) Current Condition History of Current Condition Onset Date May 2024 Current Complaints R hip pain History of Current Pt notes that she had UE radiation done from Mar-May Condition and hx of mastectomy Dec 2024. Notes that hip pain started a week following finishing radiation, but unsure if that is contributing. She was going to lift her leg into car and couldn't, w/ pain. Pt shows that pain is primarily anterior, but comes laterally around the hip. Went to [facility] and they said her R hip was just tight, got prescribed meloxicam and is using ice. Still has difficulty getting into and out of the car. Notes hip pain has improved since May. Has tried a standing quad stretch, but she doesn't feel like it stretches the right spot. Bikes a lot and notes that it feels unstable, weak, and painful when bringing leg up while pedaling and pushing up a hill. Notes hip pain is worst w/ uphill cycling. Typically bikes 20 miles but can't do her normal route d/t there being a large hill. Can still bike 18 miles, but she feels her hip the whole time while biking. Treatment Goals Patient/Caregiver bike without pain, get stronger Goals PT-OP-C Subjective Start: 08/01/24 08:59 Freq: Status: Active Protocol: Document 09/07/24 13:02 [facility] (Rec: 09/07/24 15:06 [facility] [id number]) OP-PT Subjective Patient Comments Patient Comments Pt reports lat hips can be difficult getting over the bike. PT-OP-J Posture/Palpation/Skin Start: 08/01/24 08:59 Freq: Status: Active Protocol: Document 08/01/24 09:03 GG (Rec: 08/02/24 15:15 GG [id number]) Posture Evaluation Comments Posture Comments R iliac crest higher than L, equal greater trochanters PT-OP-L Special Tests Start: 08/01/24 08:59 Freq: Status: Active Protocol: Document 08/01/24 09:03 GG (Rec: 08/01/24 09:53 GG [id number]) Special Tests Hip Special Tests DIOR Test Results pos on R Fidel Test Results pos on R Comments notes pain on L side w/ hip flexion PT-OP-M Strength Start: 08/01/24 08:59 Freq: Status: Active Protocol: Document 08/31/24 16:56 AB (Rec: 08/31/24 18:09 AB [id number]) Hip Strength Hip Manual Muscle Testing Right Flexion (L2) 4 Good Extension (S1) 3+ Fair+ Abduction 4 Good PT-OP-Q Treatments Start: 08/01/24 08:59 Freq: Status: Active Protocol: Document 09/07/24 13:02 [facility] (Rec: 09/07/24 15:06 [facility] [id number]) Therapeutic Exercises Supine Exercises hip flex Supine Exercise Name DL isometric w/DF Side bilateral Reps/Minutes 30 sec Other Exercises quadruped Other Exercise Name hip circles fwd/back Side right Reps/Minutes 6 ea Manual Therapy Treatment Consent Patient gave verbal Yes consent for manual treatment Soft Tissue Mobilization HS Comments percussion R hip Body Location R TLF, iliacus distal, lat glute Mobilization Type Rolling,Sustained Pressure Comments w/ER and flex Joint Mobilizations hip Comments R hip free the ball ER and IR c/r and inf glide c/r; L free the ball ER c/r-manual facilitiaton at end range PT-OP-T Assessment and Plan Start: 08/01/24 08:59 Freq: Status: Active Protocol: Document 09/07/24 13:02 [facility] (Rec: 09/07/24 15:06 [facility] [id number]) Physical Therapy Assessment Goals activity Short Term Goal (STG Pt will be able to get into/out of the car w/out pain. ) 08/31/2024 Patient reports having no pain when getting in and out of care. STG Duration MET Propagation Worker Goal (LTG) Pt will be able to bike her normal route, including the uphill w/out pain. 08/31/2024 Patient reports we are 80% there for no pain uphill normal route. LTG Duration 09/27/24 LEFS Impairment 58/80 Short Term Goal (STG Pt will score at least a 62/80 to show improved ) function and ability to perform activities. 08/31/2024 - 70 (70/80) X 100 =87.5% STG Duration MET Longterm Goal (LTG) Pt will score at least a 65/80 to show improved function and ability to perform activities. LTG Duration achieved to 70 strength Short Term Goal (STG Pt will be independent in HEP. ) 08/31/2024: Patient reports performing her HEP daily. STG Duration MET Longterm Goal (LTG) Pt will score at least a 4+/5 on BLE MMTs to improved strength and better ability to perform functional goals . LTG Duration 09/27/24 Assessment Summary Assessment Pt had much improved R hip IR, flex and ER after manual treatment. demonstrated good understanding of exercises. Physical Therapy Plan Frequency and Duration Frequency of 2x/Week Treatment Duration of 8 treatment (weeks) Plan of Care Start 08/01/24 Date Plan of Care End 09/27/24 Date Next Visit Focus/Plan Next Note Type Treatment Note Next Visit Plan manual for hip mobility, strength and exercises for ROM
--- NOTE | 2024-09-21 09:57 | PT.OTN ---
Current Diagnoses Pain in right hip (09/21/24) Physical Therapy Treatment Note PT-OP-A Visit Information Start: 08/01/24 08:59 Freq: Status: Active Protocol: Document 09/21/24 08:43 AB (Rec: 09/21/24 09:57 AB [id number]) Out-Patient Physical Therapy Visit Information Visit Information Visit Type Treatment Note Visit Note Access Code: [email or web address] Visit Start Time 09:07 Visit Stop Time 09:55 Visit Number 8 (PN due 10/01) Number of MOLD CLEANER Visits 1 PT-OP-B Current Condition Start: 08/01/24 08:59 Freq: Status: Active Protocol: Document 08/01/24 09:03 GG (Rec: 08/01/24 09:53 GG [id number]) Current Condition History of Current Condition Onset Date May 2024 Current Complaints R hip pain History of Current Pt notes that she had UE radiation done from Mar-May Condition and hx of mastectomy Dec 2024. Notes that hip pain started a week following finishing radiation, but unsure if that is contributing. She was going to lift her leg into car and couldn't, w/ pain. Pt shows that pain is primarily anterior, but comes laterally around the hip. Went to [facility] and they said her R hip was just tight, got prescribed meloxicam and is using ice. Still has difficulty getting into and out of the car. Notes hip pain has improved since May. Has tried a standing quad stretch, but she doesn't feel like it stretches the right spot. Bikes a lot and notes that it feels unstable, weak, and painful when bringing leg up while pedaling and pushing up a hill. Notes hip pain is worst w/ uphill cycling. Typically bikes 20 miles but can't do her normal route d/t there being a large hill. Can still bike 18 miles, but she feels her hip the whole time while biking. Treatment Goals Patient/Caregiver bike without pain, get stronger Goals PT-OP-C Subjective Start: 08/01/24 08:59 Freq: Status: Active Protocol: Document 09/21/24 08:43 AB (Rec: 09/21/24 09:57 AB [id number]) OP-PT Subjective Patient Comments Patient Comments Patient reports she is able to lift LE over the bike seat, and is able to lift foot up to sink to wash feet. Patient reports the pinching is gone, but does have lateral hip pain/attributes to exercises. Patient comments she knows what she needs to day and doesn't think she needs much more therapy. PT-OP-J Posture/Palpation/Skin Start: 08/01/24 08:59 Freq: Status: Active Protocol: Document 08/01/24 09:03 GG (Rec: 08/02/24 15:15 GG [id number]) Posture Evaluation Comments Posture Comments R iliac crest higher than L, equal greater trochanters PT-OP-L Special Tests Start: 08/01/24 08:59 Freq: Status: Active Protocol: Document 08/01/24 09:03 GG (Rec: 08/01/24 09:53 GG [id number]) Special Tests Hip Special Tests DIOR Test Results pos on R Fidel Test Results pos on R Comments notes pain on L side w/ hip flexion PT-OP-M Strength Start: 08/01/24 08:59 Freq: Status: Active Protocol: Document 08/31/24 16:56 AB (Rec: 08/31/24 18:09 AB [id number]) Hip Strength Hip Manual Muscle Testing Right Flexion (L2) 4 Good Extension (S1) 3+ Fair+ Abduction 4 Good PT-OP-Q Treatments Start: 08/01/24 08:59 Freq: Status: Active Protocol: Document 09/21/24 08:43 AB (Rec: 09/21/24 09:57 AB [id number]) Therapeutic Exercises Supine Exercises hip flex Supine Exercise Name DL isometric w/DF Side bilateral Reps/Minutes 30 sec X2 Comments verbal cues piriformis stretch Supine Exercise Name fig 4 and piriformis Side bilateral Reps/Minutes 2 X 60 sec Comments monitored for pinching Sidelying Exercises hip abduction Sidelying Exercise back to wall HEP Name Side bilateral Equipment Used level one band Reps/Minutes X15 Comments Verbal cues Other Exercises quadruped Other Exercise Name hip circles fwd/back Side bilateral Reps/Minutes 10 ea Manual Therapy Treatment Consent Patient gave verbal Yes consent for manual treatment Soft Tissue Mobilization hip Body Location R illipsoas and lat hip Mobilization Type Cross-Friction,Rolling Intensity/Depth Moderate Body Position Hooklying Joint Mobilizations med to lat R hip Joint R hip Direction med to lat and lat to med Grade IV Body Position Hooklying Reps/Duration X 10 X 3 inf Joint r hip Direction inferior Grade IV Body Position Supine PT-OP-T Assessment and Plan Start: 08/01/24 08:59 Freq: Status: Active Protocol: Document 09/21/24 08:43 AB (Rec: 09/21/24 09:57 AB [id number]) Physical Therapy Assessment Goals activity Short Term Goal (STG Pt will be able to get into/out of the car w/out pain. ) 08/31/2024 Patient reports having no pain when getting in and out of care. STG Duration MET Dragline Operator Helper Goal (LTG) Pt will be able to bike her normal route, including the uphill w/out pain. 08/31/2024 Patient reports we are 80% there for no pain uphill normal route. LTG Duration 09/27/24 LEFS Impairment 58/80 Short Term Goal (STG Pt will score at least a 62/80 to show improved ) function and ability to perform activities. 08/31/2024 - 70 (70/80) X 100 =87.5% STG Duration MET Dragline Operator Helper Goal (LTG) Pt will score at least a 65/80 to show improved function and ability to perform activities. LTG Duration achieved to 70 strength Short Term Goal (STG Pt will be independent in HEP. ) 08/31/2024: Patient reports performing her HEP daily. STG Duration MET Care Home Goal (LTG) Pt will score at least a 4+/5 on BLE MMTs to improved strength and better ability to perform functional goals . LTG Duration 09/27/24 Assessment Summary Assessment Patient into session with comments she does not think she need to continue PT, HEP condensed and progressed this session. Physical Therapy Plan Frequency and Duration Frequency of 2x/Week Treatment Duration of 8 treatment (weeks) Plan of Care Start 08/01/24 Date Plan of Care End 09/27/24 Date Next Visit Focus/Plan Next Note Type Discharge Summary Next Visit Plan Possible discharge, Patient verbalized ready for discharge last session. Discussed/condensed HEP manual for hip mobility, strength and exercises for ROM Assess veronica to HEP changes
--- NOTE | 2024-09-27 12:17 | PT.OPDS ---
Current Diagnoses Pain in right hip (09/27/24) Visit Care Team Role Provider Type Denice Dyer DO Attending Provider Physician Family Provider Primary Care Provider Referring Provider Specialty: Family Practice Address: [address] [place] [address], [address], [place], [address] Email: [email or web address] Visit Number Visit Number 9 Discharge Summary PT OP: Lower Back/Extremity Start: 09/27/24 10:16 Freq: Status: Active Protocol: Document 09/27/24 11:30 [facility] (Rec: 09/27/24 11:18 [facility] [id number]) Out-Patient Physical Therapy Visit Information Visit Information Visit Type Discharge Summary Visit Start Time 11:34 Visit Stop Time 12:14 Visit Number 9 Number of ARTIFICIAL FLOWERS DYER Visits 0 OP-PT Subjective Patient Comments Patient Comments feels ready for DC. stretches daily w/biking. Does other exercises on other days Hip Strength Hip Manual Muscle Testing Right Flexion (L2) 5 Normal Extension (S1) 4+ Good+ Abduction 5 Normal Adduction 5 Normal External Rotation 5 Normal Internal Rotation 5 Normal Left Flexion (L2) 5 Normal Extension (S1) 4+ Good+ Abduction 5 Normal Adduction 5 Normal External Rotation 5 Normal Internal Rotation 5 Normal Knee Strength Knee Manual Muscle Testing Right Flexion (S2) 5 Normal Extension (L3) 5 Normal Left Flexion (S2) 5 Normal Extension (L3) 5 Normal Ankle/Foot Strength Ankle and Foot Manual Muscle Testing Right Dorsiflexion (L4) 5 Normal Plantarflexion (S1) 5 Normal Left Dorsiflexion (L4) 5 Normal Plantarflexion (S1) 5 Normal Therapeutic Exercises Supine Exercises hip flex Supine Exercise Name DL isometric w/DF Side bilateral Reps/Minutes 30 sec Comments verbal cues for set up piriformis stretch Supine Exercise Name fig 4 and piriformis Side right Reps/Minutes X 60 sec Comments cues can press into leg Modified Fidel stretch Supine Exercise Name HEP Side bilateral Reps/Minutes 60 sec Comments verbal cues bridge Supine Exercise Name SL Side bilateral Reps/Minutes 8 Comments cues core engagement Standing Exercises hip extension Standing Exercise fwd bent over Name Side bilateral Equipment Used L1 at ankles Reps/Minutes 12 hip ABD Side bilateral Equipment Used lvl 1 at knees Reps/Minutes 10x Comments cues core Other Exercises quadruped Other Exercise Name hip circles fwd/back Side bilateral Reps/Minutes 10 ea Comments cues trunk posiiton stretches Other Exercise Name kneeling hip flexor Side bilateral Reps/Minutes 45 sec Comments cue for upright trunk and leaning forward Physical Therapy Assessment Goals activity Short Term Goal (STG Pt will be able to get into/out of the car w/out pain. ) 08/31/2024 Patient reports having no pain when getting in and out of care. STG Duration MET Senior Living Goal (LTG) Pt will be able to bike her normal route, including the uphill w/out pain. 08/31/2024 Patient reports we are 80% there for no pain uphill normal route. 8/-has been able to do 20 mile ride w/hills LTG Duration achieved 09/27 LEFS Impairment 58/80 Short Term Goal (STG Pt will score at least a 62/80 to show improved ) function and ability to perform activities. 08/31/2024 - 70 (70/80) X 100 =87.5% STG Duration MET Planogrammer Goal (LTG) Pt will score at least a 65/80 to show improved function and ability to perform activities. LTG Duration achieved to 70 strength Short Term Goal (STG Pt will be independent in HEP. ) 08/31/2024: Patient reports performing her HEP daily. STG Duration MET Senior Living Goal (LTG) Pt will score at least a 4+/5 on BLE MMTs to improved strength and better ability to perform functional goals . LTG Duration achieved 8 Assessment Summary Assessment Pt has met all goals and is indep w/HEP at this time. very min cues given with review today. she is able to lift her leg over her bike now and into car and bike w/ o issues. Physical Therapy Plan Discharge Physical Therapy Discharge Reasons Goals Met
== END 2024-09-28 11:13 | disposition home or self-care (01) ==
LOC: PHYS 11:30
PROVIDERS: Family Provider Family Medicine; PCP Family Medicine; Referring Provider Family Medicine; Visit Provider Family Medicine
DX: M25.551 Pain in right hip (principal)
CPT/HCPCS: 97110; 97140; 97162

== ENCOUNTER → 2024-11-23 11:57 | Outpatient (CLI) | payer BC, SELFPAY ==
--- NOTE | 2024-11-23 11:58 | DI.MG.S_ITS ---
MM diagnostic mammo unilat LT: 11/23/2024. BI-RADS: 1 CLINICAL: 69-year old female for left diagnostic mammogram. The patient presents for routine post-mastectomy imaging; diagnostic exam is performed as requested by the referring MD. No Tyrer-Cuzick risk score calculation due to the patient's personal history of breast cancer. Patient reports a history of right breast carcinoma diagnosed at age 68. Status-post right mastectomy with radiation therapy and hormonal therapy. PRIOR EXAMS: 12/11/2023, 12/03/2023, 02/10/2023, 08/06/2022, 03/05/2022, 02/13/2022, 02/12/2021, 03/14/2019. MAMMOGRAPHY TECHNIQUE: 2D and 3D (tomosynthesis) digital mammographic views obtained, with additional images as needed for full coverage. Current study was also evaluated with a Computer Aided Detection (CAD) system. DENSITY Left: D. The breast is extremely dense, which lowers the sensitivity of mammography. MAMMOGRAPHY FINDINGS Left: No suspicious mass, asymmetry, microcalcification, or other abnormality seen. IMPRESSION: Left * No evidence of malignancy. RECOMMENDATIONS Left * Annual screening mammography. COMMENTS: Findings and recommendations were conveyed to the patient during today's evaluation. OVERALL ASSESSMENT CATEGORY BI-RADS-1: Negative. The [employer] recommends annual screening mammography beginning at age 40 for women with average risk of breast cancer. ELECTRONICALLY SIGNED: Eduarda Garcia M.D. on 11/23/2024 at 02:35:05 PM PT Interpreting Station ID: [id number]
--- NOTE | 2024-11-23 11:58 | DI.MRI.S_ITS ---
MR breast BI wo/w con: 11/23/2024. BI-RADS: 2 CLINICAL: 69-year old female for bilateral diagnostic breast MRI. Patient reports a history of right breast carcinoma diagnosed at age 68 status post mastectomy. PRIOR EXAMS 12/11/2023, 12/03/2023, 02/10/2023, 08/06/2022, 03/05/2022, 02/13/2022, 02/12/2021, 03/14/2019. MRI TECHNIQUE Bilateral breast MRI was performed on a 1.5 Bushra magnet using a dedicated breast coil with mild compression. Axial T1 and T2 STIR sequences were obtained. Dynamic contrast enhanced VIBRANT fat-suppressed sequences were obtained. Delayed sagittal high resolution or sagittal reconstructed isotropic sequence was also obtained. Subtraction images and maximum intensity projection images were obtained. The study was evaluated using [employer] software. IV Contrast: 20 ml ProHance. FIBROGLANDULAR TISSUE Right: Mastectomy. Left: D. Extreme fibroglandular tissue. BACKGROUND PARENCHYMAL ENHANCEMENT Right: Mastectomy. Left: Minimal background parenchymal enhancement. BREAST FINDINGS Right: No suspicious mass, suspicious non-mass enhancement, or other concerning finding identified. There are no abnormal axillary or internal mammary lymph nodes. Left: No suspicious mass, suspicious non-mass enhancement, or other concerning finding identified. There is a non-enhancing, intrinsically T1 hyperintense, T2 hypointense, 0.7 cm oval, circumscribed mass at 3 o'clock, 2 cm from the nipple, compatible with a proteinaceous or hemorrhagic cyst. There are no abnormal axillary or internal mammary lymph nodes. ABDOMEN FINDINGS Scattered non-enhancing subcentimeter T2 hyperintense lesions in the liver likely hepatic cysts. IMPRESSION: * No evidence of malignancy with benign findings. RECOMMENDATIONS Left * Annual screening mammography. COMMENTS: The imaging literature indicates that a negative contrast breast MRI examination has a high sensitivity and a moderate specificity for detecting and excluding invasive carcinomas to a detection threshold of 3-5 mm; nonetheless, appropriate clinical and mammographic follow-up are recommended. MRI is not sensitive for detecting DCIS (ductal carcinoma in situ) and may not detect large invasive neoplasms that show only minimal enhancement such as mucinous carcinoma. If there are suspicious calcifications or clinically worrisome palpable masses, then biopsy should still be considered. Invasive neoplasms can be hidden by co-existent and benign enhancement caused by mastitis, hormone therapy effects, radiation therapy, , and recent biopsy or surgery. False positive examinations can occur in a number of circumstances, including breasts that have recently been subject to invasive procedures and those that contain atypical ductal hyperplasia, hormonally stimulated glandular tissue, fat necrosis, or radial scars. OVERALL ASSESSMENT CATEGORY BI-RADS-2: Benign. ELECTRONICALLY SIGNED: Eduarda Garcia M.D. on 11/23/2024 at 03:01:05 PM PT Interpreting Station ID: [id number]
== END ==
LOC: MAMMO 11:57
PROVIDERS: PCP Family Medicine; Referring Provider Internal Medicine Hematology & Oncology; Visit Provider Internal Medicine Hematology & Oncology
DX: C50.911 Malignant neoplasm of unspecified site of right female breast (principal); R92.322 Mammographic fibroglandular density, left breast; K76.9 Liver disease, unspecified; Z17.0 Estrogen receptor positive status [ER+]; Z90.11 Acquired absence of right breast and nipple
CPT/HCPCS: 77049; 77065; G0279; A9579

== ENCOUNTER → 2025-01-03 10:52 | Outpatient (CLI) | payer BC, SELFPAY ==
[2025-01-03 12:40] LABS: Alanine Aminotransferase 13 IU/L (<35); Albumin 4.2 g/dL (3.5-5.0); Albumin Globulin Ratio 1.5 (1.0-2.8); Alkaline Phosphatase 42 U/L (38-126); Blood Urea Nitrogen 16 mg/dL (7-17); Calcium 9.3 mg/dL (8.4-10.2); Carbon Dioxide 27 mmol/L (22-32); Chloride 105 mmol/L (98-107); Cholesterol 180 mg/dL (140-199); Estimated Glomerular Filt Rate > 60 mL/min (>60); Globulin 2.8 g/dL (1.7-4.1); Glucose 90 mg/dL (70-99); HDL Cholesterol 79 mg/dL (40-60); HEMOLYSIS < 15 (0-50); Potassium 4.3 mmol/L (3.4-5.1); Sodium 142 mmol/L (137-145); Total Protein 7.0 g/dL (6.3-8.2); Triglycerides 56 mg/dL (35-150)
[2025-01-03 13:08] LABS: TSH w/ Reflex to FT4 0.37 uIU/mL (0.47-4.68)
[2025-01-03 13:32] LABS: Free T4, Direct Thyroxine 1.26 ng/dL (0.78-2.19)
== END ==
PROVIDERS: PCP Family Medicine; Referring Provider Family Medicine; Visit Provider Family Medicine
DX: Z00.00 Encounter for general adult medical examination without abnormal findings (principal); D05.10 Intraductal carcinoma in situ of unspecified breast; R79.89 Other specified abnormal findings of blood chemistry
CPT/HCPCS: 36415; 80053; 80061; 84439; 84443